=== PATIENT | female | born 1990 | race Caucasian/White ===

== ENCOUNTER 2016-08-28 19:54 | Emergency (ER) | payer BC, OTHER, MEDICAID ==
[~2016-08-28] VITALS: Ht 170.2 cm; Wt 152.8 kg
[~2016-08-28 19:54] MED LIST: ADV250INH INH; AUGM500T34 PO; AZIT500T PO; COMBIN INH; LEVO500T PO; PRED10PA PO; PRED10TA PO; PRED20TA PO; TESS100C PO; [UNRECOGNIZED DRUG - OTHER] IM
[2016-08-28] MEDS ORDERED: AMOX875T (20:08)
[2016-08-28] MEDS ORDERED: IBUP80TA (20:08)
[2016-08-28] MEDS ORDERED: AUGM875T28 PO (21:13)
[2016-08-28] MEDS ORDERED: NORC1TAB4 PO (21:13)
[2016-08-28] MEDS ORDERED: AMPICILLIN SOD/SULBACTAM SOD 3 GM in D5W MINI-BAG PLUS 100 ML IV ONE (21:15)
[2016-08-28] MEDS ORDERED: KETOROLAC 30 MG/ML VIAL (J1885) IV ONE (21:15)
[2016-08-28 22:16] VITALS: BP 137/77
[2016-08-28 22:23] LABS: BASO % 0.3 % (0.0-1.0); EOS # 0.3 K/mm3 (0.0-0.50); EOS % 2.6 % (0.0-3.0); LARGE UNSTAINED CELL # 0.1 K/mm3 (0.0-0.4); LARGE UNSTAINED CELL % 1.1 % (0.0-4.0); LYMPH # 2.3 K/mm3 (1.5-6.5); LYMPH % 17.5 % (24.0-44.0); MEAN CORPUSCULAR HEMOGLOBIN 25.2 pg (27.0-33.0); MEAN CORPUSCULAR HGB CONC 32.8 g/dl (32.0-36.5); MEAN CORPUSCULAR VOLUME 76.7 fl (80.0-96.0); MONO # 0.5 K/mm3 (0.0-0.8); NEUTROPHILS # 9.3 K/mm3 (1.8-7.7); NEUTROPHILS % 74.4 % (36.0-66.0); PLATELET COUNT, AUTOMATED 259 k/mm3 (150-450); RED CELL DISTRIBUTION WIDTH 16.8 % (11.5-14.5); WHITE BLOOD COUNT 12.5 K/mm3 (4.0-10.0)
[2016-08-29] MEDS ORDERED: CLEO300C2 PO (09:26)
== END 2016-08-28 23:26 | disposition home or self-care (01) ==
LOC: M ED 21:35
DX: K04.7 Periapical abscess without sinus (principal); K02.9 Dental caries, unspecified; Z79.51 Long term (current) use of inhaled steroids
CPT/HCPCS: 85025; 87040; 96374; 96375; 99283; J1885

== ENCOUNTER 2016-08-29 06:35 | Emergency (ER) | payer BC, OTHER, MEDICAID ==
[~2016-08-29] VITALS: Ht 170.2 cm; Wt 150.0 kg
[~2016-08-29 06:35] MED LIST changes: +AMOX875T; +AUGM875T28 PO; +IBUP80TA; +NORC1TAB4 PO
[2016-08-29] MEDS ORDERED: CLINDAMYCIN 900 MG in APPROPRIATE DILUENT 1 EA IV ONE (07:00)
[2016-08-29] MEDS ORDERED: KETOROLAC 30 MG/ML VIAL (J1885) IV ONE (07:00)
[2016-08-29 07:35] LABS: BASO # 0.1 K/mm3 (0.0-0.2); BASO % 0.6 % (0.0-1.0); EOS # 0.3 K/mm3 (0.0-0.50); EOS % 2.9 % (0.0-3.0); LARGE UNSTAINED CELL # 0.2 K/mm3 (0.0-0.4); LARGE UNSTAINED CELL % 1.3 % (0.0-4.0); LYMPH # 1.8 K/mm3 (1.5-6.5); LYMPH % 15.6 % (24.0-44.0); MEAN CORPUSCULAR HEMOGLOBIN 25.1 pg (27.0-33.0); MEAN CORPUSCULAR VOLUME 78.5 fl (80.0-96.0); MONO # 0.5 K/mm3 (0.0-0.8); MONO % 4.4 % (0.0-5.0); NEUTROPHILS # 8.8 K/mm3 (1.8-7.7); NEUTROPHILS % 75.2 % (36.0-66.0); PLATELET COUNT, AUTOMATED 261 k/mm3 (150-450); RED CELL DISTRIBUTION WIDTH 16.8 % (11.5-14.5); WHITE BLOOD COUNT 11.7 K/mm3 (4.0-10.0)
[2016-08-29 07:42] LABS: ANION GAP 4 MEQ/L (8-16); BLOOD UREA NITROGEN 12 MG/DL (7-18); CALCIUM LEVEL 8.7 MG/DL (8.5-10.1); CARBON DIOXIDE LEVEL 28 MEQ/L (21-32); CHLORIDE LEVEL 105 MEQ/L (98-107); CREATININE FOR GFR 0.66 MG/DL (0.55-1.02); GLOMERULAR FILTRATION RATE > 60.0 (>60); GLUCOSE, FASTING 106 MG/DL (70-105); POTASSIUM SERUM 3.7 MEQ/L (3.5-5.1); SODIUM LEVEL 137 MEQ/L (136-145)
[2016-08-29] MEDS ORDERED: ISOVUE-370 76% 100ML VIAL (Q9967) As Ordered ONE (08:05)
[2016-08-29 09:01] LABS: ERYTHROCYTE SEDIMENTATION RATE 24 mm/hr (0-20)
--- NOTE | 2016-08-29 09:21 | REP ---
CT SOFT TISSUES NECK: CT soft tissues of the neck performed following the intravenous administration of 75 mL of Isovue 370. Sagittal and coronal reconstruction images are performed. There is edema and presumably cellulitis of the soft tissues along the left mandible with heterogeneous phlegmonous change. No discrete abscess is seen. No other fluid collections are seen in the soft tissues of the neck. Mildly prominent left jugular lymph nodes are present up to 1.5 cm in short axis dimension. No mass is seen of the parotid or submandibular glands. The thyroid appears unremarkable and normal in size. No osseous abnormalities are seen. The visualized paranasal sinuses are clear as are the mastoid air cells. Airway is patent and symmetrical in appearance with no abnormality. IMPRESSION: Cellulitis and phlegmonous change along the left mandible without a discrete abscess identified. Signed by Lino Davis MD 08/30/2016 05:06 P
[2016-08-29 09:23] VITALS: BP 130/65
[2016-08-29] MEDS ORDERED: CLEO300C2 PO (09:26)
== END 2016-08-29 09:37 | disposition home or self-care (01) ==
LOC: M ED 07:53
DX: K04.7 Periapical abscess without sinus (principal); L03.211 Cellulitis of face; J45.909 Unspecified asthma, uncomplicated; F41.9 Anxiety disorder, unspecified; F32.9 Major depressive disorder, single episode, unspecified
CPT/HCPCS: 70491; 80048; 85025; 85652; 86140; 96374; 96375; 99283; J1885; Q9967

== ENCOUNTER 2016-08-29 16:30 | Emergency (ER) | payer BC, OTHER, MEDICAID ==
[~2016-08-29] VITALS: Ht 170.2 cm; Wt 152.3 kg
[~2016-08-29 16:30] MED LIST changes: +CLEO300C2 PO
[2016-08-29] MEDS ORDERED: BUPIVACAINE HCL 0.5% 10 ML VIAL SC ONE (17:45)
[2016-08-29] MEDS ORDERED: BUPIVACAINE HCL 0.5% 10 ML VIAL As Ordered ONE (17:46)
[2016-08-29] MEDS ORDERED: MORPHINE 4 MG/ML 1ML SYRINGE IV ONE (18:00)
[2016-08-29] MEDS ORDERED: CETACAINE SPRAY 20GM (FLOOR STOCK) TOP ONE (19:15)
[2016-08-29 19:40] VITALS: BP 147/69
== END 2016-08-29 19:41 | disposition home or self-care (01) ==
LOC: M ED 17:37
DX: K04.7 Periapical abscess without sinus (principal); L03.211 Cellulitis of face; R68.84 Jaw pain; G50.1 Atypical facial pain; J45.909 Unspecified asthma, uncomplicated; E66.9 Obesity, unspecified; Z79.51 Long term (current) use of inhaled steroids

== ENCOUNTER 2017-12-29 21:48 | Emergency (ER) | payer OTHER, BC, MEDICAID ==
[2017-12-29] MEDS ORDERED: IBUPROFEN 600 MG TAB PO (22:15)
== END 2017-12-29 22:51 | disposition home or self-care (01) ==
LOC: M ED 21:48
DX: S92.532A Displaced fracture of distal phalanx of left lesser toe(s), initial encounter for closed fracture (principal); W22.8XXA Striking against or struck by other objects, initial encounter; Y92.018 Other place in single-family (private) house as the place of occurrence of the external cause; J45.909 Unspecified asthma, uncomplicated; E07.9 Disorder of thyroid, unspecified
CPT/HCPCS: 73660

== ENCOUNTER 2018-03-07 19:55 | Emergency (ER) | payer OTHER ==
[~2018-03-07] VITALS: Ht 170.2 cm; Wt 145.4 kg
[2018-03-07] MEDS ORDERED: TRAM50TA2 PO (21:17)
[2018-03-07 21:28] VITALS: BP 140/68
[2018-03-07] MEDS ORDERED: traMADol 50 MG TAB PO ONE (21:30)
== END 2018-03-07 22:01 | disposition home or self-care (01) ==
LOC: M ED 19:55
DX: S02.5XXA Fracture of tooth (traumatic), initial encounter for closed fracture (principal); X58.XXXA Exposure to other specified factors, initial encounter; Y92.89 Other specified places as the place of occurrence of the external cause; F17.210 Nicotine dependence, cigarettes, uncomplicated

== ENCOUNTER 2018-07-24 15:25 | Emergency (ER) | payer BC, OTHER ==
[~2018-07-24] VITALS: Ht 170.2 cm; Wt 146.6 kg
[~2018-07-24 15:25] MED LIST changes: -NORC1TAB4 PO; +NORC1TAB7 PO; +PRED-351 PO; -PRED10TA PO; +TRAM50TA2 PO
[2018-07-24 15:26] VITALS: BP 160/80
--- NOTE | 2018-07-24 16:45 | REP ---
LEFT HAND, FOUR VIEWS: HISTORY: Trauma. There is no acute fracture or dislocation. The joint spaces are normal in appearance. IMPRESSION: There is no acute fracture or dislocation. Electronically Signed by Osorio Coronado MD 07/24/2018 04:45 P
== END 2018-07-24 16:40 | disposition home or self-care (01) ==
LOC: M ED 15:25
DX: S63.502A Unspecified sprain of left wrist, initial encounter (principal); W01.0XXA Fall on same level from slipping, tripping and stumbling without subsequent striking against object, initial encounter; Y92.018 Other place in single-family (private) house as the place of occurrence of the external cause; F17.210 Nicotine dependence, cigarettes, uncomplicated

== ENCOUNTER 2019-02-09 19:26 | Emergency (ER) | payer BC ==
[~2019-02-09] VITALS: Ht 170.2 cm; Wt 150.0 kg
--- NOTE | 2019-02-09 20:01 | REP ---
Four views left knee: 02/09/2019. Indication: Left knee pain. Comparison: None. Findings: There is no acute fracture, subluxation or dislocation. No significant arthritic process is present. There is no joint effusion. No erosive lesions of the visualized bones are present. Impression: No acute osseous injury of the left knee. Electronically Signed by Edwar Branch DO 02/09/2019 07:52 P
[2019-02-09 20:03] LABS: HEMATOCRIT 40.2 % (36.0-47.0); HEMOGLOBIN 12.3 g/dl (12.0-15.5); MEAN CORPUSCULAR HEMOGLOBIN 24.3 pg (27.0-33.0); MEAN CORPUSCULAR HGB CONC 30.6 g/dl (32.0-36.5); MEAN CORPUSCULAR VOLUME 79.4 fl (80.0-96.0); PLATELET COUNT, AUTOMATED 299 10^3/uL (150-450); RED BLOOD COUNT 5.06 10^6/uL (4.00-5.40); WHITE BLOOD COUNT 14.6 10^3/uL (4.0-10.0)
[2019-02-09 20:22] LABS: ERYTHROCYTE SEDIMENTATION RATE 13 mm/hr (0-20)
[2019-02-09 20:26] LABS: ALBUMIN 3.7 GM/DL (3.2-5.2); ALT/SGPT 37 U/L (12-78); BILIRUBIN,TOTAL 0.2 MG/DL (0.2-1.0); BLOOD UREA NITROGEN 11 MG/DL (7-18); CALCIUM LEVEL 9.3 MG/DL (8.5-10.1); CARBON DIOXIDE LEVEL 28 MEQ/L (21-32); CHLORIDE LEVEL 105 MEQ/L (98-107); CREATININE FOR GFR 0.86 MG/DL (0.55-1.30); GLOMERULAR FILTRATION RATE > 60.0 (>60); GLUCOSE, FASTING 96 MG/DL (70-100); POTASSIUM SERUM 4.2 MEQ/L (3.5-5.1); SODIUM LEVEL 141 MEQ/L (136-145); TOTAL PROTEIN 7.4 GM/DL (6.4-8.2); URIC ACID 4.7 MG/DL (2.6-6.0)
[2019-02-09] MEDS ORDERED: ACETAMINOPHEN 325 MG TAB PO ONE (23:00)
[2019-02-09] MEDS ORDERED: KETOROLAC 60 MG/2 ML VIAL (J1885) IM ONE (23:00)
[2019-02-09] MEDS ORDERED: KETO10TAB PO (23:40)
[2019-02-09 23:47] VITALS: BP 138/84
== END 2019-02-09 23:48 | disposition home or self-care (01) ==
LOC: M ED 19:26
DX: S80.02XA Contusion of left knee, initial encounter (principal); X58.XXXA Exposure to other specified factors, initial encounter; Y92.89 Other specified places as the place of occurrence of the external cause; J45.909 Unspecified asthma, uncomplicated; F17.200 Nicotine dependence, unspecified, uncomplicated
CPT/HCPCS: 36415; 73564; 80053; 83605; 84550; 85027; 85652; 86140; 96372; 99283; J1885

== ENCOUNTER → 2019-08-21 | Outpatient (CLI) | payer BC ==
[~2019-08-21] MED LIST changes: +KETO10TAB PO
[2019-08-21 10:24] LABS: BASO # 0.1 10^3/uL (0.0-0.2); BASO % 0.6 % (0.0-1.0); EOS # 0.5 10^3/uL (0.0-0.5); HEMATOCRIT 37.1 % (36.0-47.0); HEMOGLOBIN 11.7 g/dl (12.0-15.5); LYMPH # 2.4 10^3/uL (1.5-5.0); MEAN CORPUSCULAR HEMOGLOBIN 23.9 pg (27.0-33.0); MEAN CORPUSCULAR HGB CONC 31.5 g/dl (32.0-36.5); MEAN CORPUSCULAR VOLUME 75.7 fl (80.0-96.0); MONO # 0.7 10^3/uL (0.0-0.8); MONO % 6.8 % (0.0-5.0); NEUTROPHILS # 5.9 10^3/uL (1.5-8.5); NEUTROPHILS % 62.2 % (36.0-66.0); PLATELET COUNT, AUTOMATED 258 10^3/uL (150-450); WHITE BLOOD COUNT 9.5 10^3/uL (4.0-10.0)
[2019-08-21 10:54] LABS: CHOLESTEROL LEVEL 134 MG/DL (<200); FREE T3 2.8 PG/ML (2.2-4.0); FREE T4 0.95 NG/DL (0.76-1.46); HDL CHOLESTEROL 33 MG/DL (>40); LDL CHOLESTEROL 72 MG/DL (<100); NON-HDL-C 101 MG/DL; THYROID PEROXIDASE ANTIBODY > 1300.0 U/ML (<60.0); THYROXINE (T4) 7.5 UG/DL (4.5-12.0); TOTAL 25(OH) VITAMIN D 15.3 NG/ML (30.0-100.0); TRIGLYCERIDES LEVEL 145 MG/DL (<150)
[2019-08-21 11:15] LABS: HEMOGLOBIN A1c 5.5 %
== END ==
LOC: M WUC 08:36
PROVIDERS: ATTEND Nurse Practitioner Adult Health
DX: Z51.81 Encounter for therapeutic drug level monitoring (principal); Z79.899 Other long term (current) drug therapy; G47.33 Obstructive sleep apnea (adult) (pediatric); E03.9 Hypothyroidism, unspecified

== ENCOUNTER 2020-04-11 15:10 | Emergency (ER) | payer BC ==
[~2020-04-11] VITALS: Ht 170.2 cm; Wt 136.8 kg
--- OUTSIDE RECORDS SUMMARY | 2020-04-11 15:15 | CCD ---
Author Author [facility] Organization [facility] Address Unknown Phone Unavailable Care Team Providers Care Electronic Engraver Name Role Phone Lizett Strange ANP-BC Unavailable Unavailable Lizett Strangen ANP-BC Unavailable Unavailable Lizett Strangen ANP-BC Unavailable Unavailable Lizett Strangen ANP-BC Unavailable Unavailable AlexandrLizett Makayla ANP-BC Unavailable Unavailable AlexandrLizett Makayla ANP-BC Unavailable Unavailable AlexandrLizett Makayla ANP-BC Unavailable Unavailable Lizett Strange Makayla ANP-BC Unavailable Unavailable Lizett Strange Makayla ANP-BC Unavailable Unavailable AlexandrLizett Makayla ANP-BC Unavailable Unavailable AlexandrLizett Makayla ANP-BC Unavailable Unavailable AlexandrLizett Makayla ANP-BC Unavailable Unavailable AlexandrLizett Makayla ANP-BC Unavailable Unavailable AlexandrLizett Makayla ANP-BC Unavailable Unavailable AlexandrLizett Makayla ANP-BC Unavailable Unavailable AlexandrLizett Makayla ANP-BC Unavailable Unavailable AlexandrLizett Makayla ANP-BC Unavailable Unavailable AlexandrLizett Makayla ANP-BC Unavailable Unavailable AlexandrLizett Makayla ANP-BC Unavailable Unavailable AlexandrLizett Makayla ANP-BC Unavailable Unavailable AlexandrLizett Makayla ANP-BC Unavailable Unavailable Alexandr, Lizett Makayla ANP-BC Unavailable Unavailable Alexandr, Lizett Makayla ANP-BC Unavailable Unavailable Alexandr, Lizett Makayla ANP-BC Unavailable Unavailable Alexandr, Lizett Makayla ANP-BC Unavailable Unavailable Alexandr, Lizett Makayla ANP-BC Unavailable Unavailable Alexandr, Lizett Makayla ANP-BC Unavailable Unavailable Alexandr, Lizett Makayla ANP-BC Unavailable Unavailable Alexandr, Lizett Makayla ANP-BC Unavailable Unavailable Alexandr, Lizett Makayla ANP-BC Unavailable Unavailable Alexandr, Lizett Makayla ANP-BC Unavailable Unavailable Alexandr, Lizett Makayla ANP-BC Unavailable Unavailable Alexandr, Lizett Makayla ANP-BC Unavailable Unavailable Alexandr, Lizett Makayla ANP-BC Unavailable Unavailable Alexandr, Lizett Makayla ANP-BC Unavailable Unavailable Alexandr, Lizett Makayla ANP-BC Unavailable Unavailable Alexandr, Lizett Makayla ANP-BC Unavailable Unavailable Alexandr, Lizett Makayla ANP-BC Unavailable Unavailable Alexandr, Lizett Makayla ANP-BC Unavailable Unavailable Alexandr, Lizett Makayla ANP-BC Unavailable Unavailable Alexandr, Lizett Makayla ANP-BC Unavailable Unavailable Alexandr, Lizett Makayla ANP-BC Unavailable Unavailable Alexandr, Lizett Makayla ANP-BC Unavailable Unavailable Alexandr, Lizett Makayla ANP-BC Unavailable Unavailable Alexandr, Lizett Makayla ANP-BC Unavailable Unavailable Alexandr, Lizett Makayla ANP-BC Unavailable Unavailable Alexandr, Lizett Makayla ANP-BC Unavailable Unavailable Alexandr, Lizett Makayla ANP-BC Unavailable Unavailable Alexandr, Lizett Makayla ANP-BC Unavailable Unavailable Alexandr, Lizett Makayla ANP-BC Unavailable Unavailable Alexandr, Lizett Makayla ANP-BC Unavailable Unavailable Alexandr, Lizett Makayla ANP-BC Unavailable Unavailable Alexandr, Lizett Makayla ANP-BC Unavailable Unavailable Alexandr, Lizett Makayla ANP-BC Unavailable Unavailable Alexandr, Lizett Makayla ANP-BC Unavailable Unavailable Alexandr, Lizett Makayla ANP-BC Unavailable Unavailable Alexandr, Lizett Makayla ANP-BC Unavailable Unavailable Alexandr, Lizett Makayla ANP-BC Unavailable Unavailable Alexandr, Lizett Makayla ANP-BC Unavailable Unavailable Alexandr, Lizett Makayla ANP-BC Unavailable Unavailable Alexandr, Lizett Makayla ANP-BC Unavailable Unavailable Alexandr, Lizett Makayla ANP-BC Unavailable Unavailable Alexandr, Lizett Makayla ANP-BC Unavailable Unavailable Alexandr, Lizett Makayla ANP-BC Unavailable Unavailable Alexandr, Lizett Makayla ANP-BC Unavailable Unavailable Alexandr, Lizett Makayla ANP-BC Unavailable Unavailable Alexandr, Lizett Makayla ANP-BC Unavailable Unavailable Alexandr, Lizett Makayla ANP-BC Unavailable Unavailable Alexandr, Lizett Makayla ANP-BC Unavailable Unavailable Alexandr, Lizett Makayla ANP-BC Unavailable Unavailable Alexandr, Lizett Makayla ANP-BC Unavailable Unavailable Alexandr, Lizett Makayla ANP-BC Unavailable Unavailable Alexandr, Lizett Makayla ANP-BC Unavailable Unavailable Alexandr, Lizett Makayla ANP-BC Unavailable Unavailable Alexandr, Lizett Makayla ANP-BC Unavailable Unavailable Alexandr, Lizett Makayla ANP-BC Unavailable Unavailable Alexandr, Lizett Makayla ANP-BC Unavailable Unavailable Alexandr, Lizett Makayla ANP-BC Unavailable Unavailable Alexandr, Lizett Makayla ANP-BC Unavailable Unavailable Alexandr, Lizett Makayla ANP-BC Unavailable Unavailable Alexandr, Lizett Makayla ANP-BC Unavailable Unavailable Alexandr, Lizett Makayla ANP-BC Unavailable Unavailable Alexandr, Lizett Makayla ANP-BC Unavailable Unavailable Alexandr, Lizett Makayla ANP-BC Unavailable Unavailable Alexandr, Lizett Makayla ANP-BC Unavailable Unavailable Alexandr, Lizett Makayla ANP-BC Unavailable Unavailable Alexandr, Lizett Makayla ANP-BC Unavailable Unavailable Alexandr, Lizett Makayla ANP-BC Unavailable Unavailable Alexandr, Lizett Makayla ANP-BC Unavailable Unavailable Alexandr, Lizett Makayla ANP-BC Unavailable Unavailable Alexandr, Lizett Makayla ANP-BC Unavailable Unavailable Alexandr, Lizett Makayla ANP-BC Unavailable Unavailable Alexandr, Lizett Makayla ANP-BC Unavailable Unavailable Alexandr, Lizett Makayla ANP-BC Unavailable Unavailable Alexandr, Lizett Makayla ANP-BC Unavailable Unavailable Alexandr, Lizett Makayla ANP-BC Unavailable Unavailable Alexandr, Lizett Makayla ANP-BC Unavailable Unavailable Alexandr, Lizett Makayla ANP-BC Unavailable Unavailable Alexandr, Lizett Makayla ANP-BC Unavailable Unavailable Alexandr, Lizett Makayla ANP-BC Unavailable Unavailable Alexandr, Lizett Makayla ANP-BC Unavailable Unavailable Alexandr, Lizett Makayla ANP-BC Unavailable Unavailable Alexandr, Lizett Makayla ANP-BC Unavailable Unavailable Alexandr, Lizett Makayla ANP-BC Unavailable Unavailable Alexandr, Lizett Makayla ANP-BC Unavailable Unavailable Alexandr, Lizett Makayla ANP-BC Unavailable Unavailable Alexandr, Lizett Makayla ANP-BC Unavailable Unavailable Alexandr, Lizett Makayla ANP-BC Unavailable Unavailable Alexandr, Lizett Makayla ANP-BC Unavailable Unavailable Alexandr, Lizett Makayla ANP-BC Unavailable Unavailable Alexandr, Lizett Makayla ANP-BC Unavailable Unavailable Alexandr, Lizett Makayla ANP-BC Unavailable Unavailable Alexandr, Lizett Makayla ANP-BC Unavailable Unavailable Alexandr, Lizett Makayla ANP-BC Unavailable Unavailable Alexandr, Lizett Makayla ANP-BC Unavailable Unavailable Alexandr, Lizett Makayla ANP-BC Unavailable Unavailable Alexandr, Lizett Makayla ANP-BC Unavailable Unavailable Alexandr, Lizett Makayla ANP-BC Unavailable Unavailable Alexandr, Lizett Makayla ANP-BC Unavailable Unavailable Laexandr, Lizett Makayla ANP-BC Unavailable Unavailable Alexandr, Lizett Makayla ANP-BC Unavailable Unavailable Alexandr, Lizett Makayla ANP-BC Unavailable Unavailable Alexandr, Lizett Makayla ANP-BC Unavailable Unavailable Alexandr, Lizett Makayla ANP-BC Unavailable Unavailable Alexandr, Lizett Makayla ANP-BC Unavailable Unavailable Alexandr, Lizett Makayla ANP-BC Unavailable Unavailable Alexandr, Lizett Makayla ANP-BC Unavailable Unavailable Alexandr, Lizett Makayla ANP-BC Unavailable Unavailable Re-disclosure Warning The records that you are about to access may contain information from federally-assisted alcohol or drug abuse programs. If such information is present, then the following federally mandated warning applies: This information has been disclosed to you from records protected by federal confidentiality rules (42 CFR part 2). The federal rules prohibit you from making any further disclosure of this information unless further disclosure is expressly permitted by the written consent of the person to whom it pertains or as otherwise permitted by 42 CFR part 2. A general authorization for the release of medical or other information is NOT sufficient for this purpose. The Federal rules restrict any use of the information to criminally investigate or prosecute any alcohol or drug abuse patient.The records that you are about to access may contain highly sensitive health information, the redisclosure of which is protected by Article 27-F of the [facility] Public Health law. If you continue you may have access to information: Regarding HIV / AIDS; Provided by facilities licensed or operated by the [facility] Office of Mental Health; or Provided by the [facility] Office for People With Developmental Disabilities. If such information is present, then the following [facility] mandated warning applies: This information has been disclosed to you from confidential records which are protected by state law. State law prohibits you from making any further disclosure of this information without the specific written consent of the person to whom it pertains, or as otherwise permitted by law. Any unauthorized further disclosure in violation of state law may result in a fine or fdc sentence or both. A general authorization for the release of medical or other information is NOT sufficient authorization for further disc losure. Family History Family Member Name Family Member Gender Family Member Status Date o f Status Description Data Source(s) Unknown Male Problem [facility] ([facility]) Encounters Encounter Providers Location Date Indications Data Source(s ) Outpatient Attender: Makayla IVERSONonsultant: Makayla WILLIAMSON 08/21/2019 12:59:00 PM EDT - 08/21/2019 12:59:00 PM EDT [facility] Outpatient Attender: Makayla WILLIAMSON Family [facility] 07/09 10:40:00 AM EDT [facility] Outpatient Attender: Makayla IVERSONonsultant: Makayla WILLIAMSON 07/27/2019 10:35:00 AM EDT - 07/27/2019 10:35:00 AM EDT [facility] Outpatient 02/17/2019 09:45:[address] [facility] Radiology Imaging Medications Medication Brand Name Start Date Product Form Dose Route Admi nistrative Instructions Pharmacy Instructions Status Indications Reaction Description Data Source(s) Ergocalciferol 85064 UNT Oral Capsule Vitamin D (Ergocalcife rol) 08/23/2019 12:00:00 AM EDT active M EDENT ([facility]) Norethindrone 0.35 MG Oral Tablet Norethindrone 08/21/2019 12:00:00 A M EDT active [facility] ([facility]) Ergocalciferol 22095 UNT Oral Capsule [Drisdol] Drisdol 08/21/2019 12:00:00 AM EDT ORAL completed [facility] ([facility]) Levothyroxine Sodium 0.05 MG Oral Tablet Levothyroxine Sodiu m 08/21/2019 12:00:00 AM EDT active M [facility]ENT ([facility]) Hydroxyzine Hydrochloride 25 MG Oral Tablet Hydroxyzine HCL 07/27/2019 12:00:00 AM EDT ORAL active [facility] ([facility]) Naproxen 375 MG Oral Tablet Naproxen 07/27/2019 12:00:00 AM EDT ORAL active [facility] ([facility]) No Active Medications 07/27/2019 12:00:00 AM EDT completed [facility] ([facility]) 200 ACTUAT Albuterol 0.09 MG/ACTUAT Metered Dose Inhal er [Ventolin] Ventolin HFA 07/27/2019 12:00:00 AM EDT RESPIRATORY active [facility] ([facility]) Insurance Providers Payer name Policy type / Coverage type Policy ID Covered republican ID Covered republican's relationship to boucher Policy Boucher Plan Information [employer] P[place] 302/307 [id number] SP [id number] [facility]LLUS [facility] BS [id number] 18 [id number] EXCELLUS BCBS B [id number] S [id number] [place] [place] PPO 302/307 [id number] SP [id number] [employer] [id number] SP [id number] MVP (pr) Commercial [id number] Self [id number] MVP (pr) Commercial [id number] Self [id number] [employer] [id number] SP [id number] MEDICAID [id number] SP [id number] [facility] [id number] [id number] BCBS EMPIRE YUNIER DIV [id number] FA2 [id number] MEDICAID M [id number] [facility] O [id number] S [id number] MEDICAID [id number] 18 [id number] [facility] [id number] [place]ID [place] [id number] MEDICAID -O/P [id number] 18 [id number] [facility] -O/P [id number] UNHC AMERICHOICE XIX -HMO [id number] 18 [id number] MEDICAID -O/P EMERGENCY ROOM [id number] 18 [id number] [facility] P [id number] S [id number] [facility] [id number] [id number] BCBS [facility] DIV [id number] [id number] Problems, Conditions, and Diagnoses Code Display Name Description Problem Type Effective Dates Data Source(s) L78372 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 O ther press tender long goods (current) drug therapy Diagnosis 07/27/2019 10:35:00 AM EDT [facility] [id number] Migraine, unspecified, not intractable, without status migrainosus Migraine, unspecified, not intractable, without status migrainosus Diagnosis 07/27/2019 10:35:00 AM EDT [facility] F411 Generalized anxiety disorder Generalized anxiety disor opal Diagnosis 07/27/2019 10:35:00 AM EDT [facility] R78271 Other asthma Other asthma Diagnosis 07/27/2019 10:35:00 A M EDT [facility] G4733 Obstructive sleep apnea (adult) (pediatr ic) Obstructive sleep apnea (adult) (pediatric) Diagnosis 07/27/2019 10:35:00 AM EDT [facility] E039 Hypothyroidism, unspecified Hypothyroidism, unspecifie d Diagnosis 07/27/2019 10:35:00 AM EDT [facility] Surgeries/Procedures Procedure Description Date Indications Data Source(s) Brief Emotional/Behav Assessment W/ Scoring Doc Per Standard Inst 07/27/2019 12:00:00 AM EDT [facility] ([facility]) Admin Patient Focused Health Risk Assessment Instrument 07/27/2019 12:00:00 AM EDT [facility] ([facility]) Results ID Date Data Source [id number] 09/26/2019 12:00:00 AM EDT [facility] Name Value Range Interpretation Code Description Data Donna rce(s) Supporting Document(s) SARS coronavirus 2 RNA [Presence] in Res piratory specimen by AGATA with probe detection [facility] This lab was ordered by Abdulkadir Gan and reported by [facility] [employer]. ID Date Data Source [id number] 08/21/2019 08:40:00 AM EDT [facility] ([facility]) Name Value Range Interpretation Code Description Data Donna rce(s) Supporting Document(s) Estimated Average Glucose 111 mg/dL 60-110 Above high normal [facility] ([facility]) Hemoglobin A1c 5.5 % Normal (applies to non-numeric r esults) [facility] ([facility]) REFERENCE RANGES: 4.5-5.6% NORMAL 5.7-6.4% SUGGESTS IMPAIRED GLUCOSE META BOLISM >= 6.5% ABNORMAL ID Date Data Source [id number] 08/21/2019 08:40:00 AM EDT [facility] Name Value Range Interpretation Code Description Data Donna rce(s) Supporting Document(s) Thyroxine (T4) [Mass/volume] in Serum or Plasma 7.5 ug/dL 4.5-12.0 Normal (applies to non-numeric results) [facility] ([facility]) Triiodothyronine (T3) Free [Mass/volume] in Serum or Plasma 2.8 pg/mL 2.2-4.0 Normal (applies to non-numeric results) [facility] ([facility]) Thyroxine (T4) free [Mass/volume] in Serum or Plasma 0.95 ng/dL 0.76-1.46 Normal (applies to non-numeric results) [facility] ([facility]) Thyrotropin [Units/volume] in Serum or Plasma 4.230 uIU/ML 0. 358-3.740 Above high normal [facility] ([facility]) Thyroperoxidase Ab [Units/volume] in Serum or Plasma Laboratory test result Above high normal [facility] ([facility]) Calcidiol [Mass/volume] in Serum or Plasma 15.3 ng/mL 30.0- 100.0 Below low normal [facility] ([facility]) ID Date Data Source [id number] 08/21/2019 08:40:00 AM EDT [facility] ([facility]) Name Value Range Interpretation Code Description Data Donna rce(s) Supporting Document(s) Cholesterol Level 134 mg/dL Normal (applies to non-numeri c results) [facility] HDL Cholesterol 33 mg/dL Below low normal [facility] ([facility]) Triglycerides Level 145 mg/dL Normal (applies to non-nume maricel results) [facility] Cholesterol Risk Ratio 4.060 Normal (applies to non-n umeric results) [facility]) LDL Cholesterol 72 mg/dL Normal (applies to non-numeric results) [facility] Non-HDL-C 101 mg/dL Normal (applies to non-numeric resul ts) [facility] Procedure Vital Signs ID Date Data Source UNK Name Value Range Interpretation Code Description Data Source(s) Body surface area Derived from formula 2.38 m2 2.38 m2 [facility] ([facility]) Body mass index (BMI) [Ratio] 48.7 kg/m2 48.7 k g/m2 [facility] ([facility]) Body height 66 [in_i] 66 [in_i] [facility] ([facility]) 5'6" Body weight 136.760 kg 136.760 kg [facility] ([facility]) Body weight 301.50 [lb_av] 301.50 [lb_av] [facility] ([facility]) Oxygen saturation in Arterial blood by Pulse oximetry 98 % 98 % [facility] ([facility]) Respiratory rate 18 /min 18 /min [facility] ( [facility]) Body temperature 98.1 [degF] 98.1 [degF] [facility] ([facility]) Heart rate 90 /min 90 /min [facility] ([facility]) Diastolic blood pressure 78 mm[Hg] 78 mm[Hg] [facility] ([facility]) Systolic blood pressure 128 mm[Hg] 128 mm[Hg] [facility] Body surface area 2.38 m2 2.38 m2 [facility] ([facility]) Body surface area Derived from formula 2.39 m2 2.39 m2 [facility] ([facility]) Body mass index (BMI) [Ratio] 49.3 kg/m2 49.3 k g/m2 [facility] ([facility]) Body height 66 [in_i] 66 [in_i] [facility] ([facility]) 5'6" Body weight 138.461 kg 138.461 kg [facility] ([facility]) Body weight 305.25 [lb_av] 305.25 [lb_av] [facility] T ([facility]) Oxygen saturation in Arterial blood by Pulse oximetry 96 % 96 % [facility] ([facility]) Respiratory rate 18 /min 18 /min [facility] ( [facility]) Body temperature 98.1 [degF] 98.1 [degF] [facility] ([facility]) Heart rate 94 /min 94 /min [facility] ([facility]) Diastolic blood pressure 80 mm[Hg] 80 mm[Hg] [facility] ([facility]) Systolic blood pressure 136 mm[Hg] 136 mm[Hg] [facility] Body surface area 2.39 m2 2.39 m2 [facility] ([facility])
--- NOTE | 2020-04-11 16:58 | REP ---
INDICATION: fall down stairs. COMPARISON: None. TECHNIQUE: Five views left ribs and PA view of chest. FINDINGS: There is no evidence of left rib fracture or bone lesion. Both lungs are clear. There is no pneumothorax or pleural effusion. The heart mediastinum are within normal limits. IMPRESSION: Negative left rib series, no evidence of left rib fracture. <Electronically signed by Lino Davis > 04/11/20 [id number]
[2020-04-11] MEDS ORDERED: CYCLOBENZAPRINE 5MG TABLET PO ONE (18:00)
[2020-04-11] MEDS ORDERED: KETOROLAC 60MG 2ML VIAL IM ONE (18:00)
--- OUTSIDE RECORDS SUMMARY | 2020-04-11 18:19 | CCD ---
Author Author [facility] Organization [facility] Address Unknown Phone Unavailable Care Team Providers Care Spa Concierge Name Role Phone Lizett Strange ANP-BC Unavailable Unavailable Lizett Strangen ANP-BC Unavailable Unavailable Lizett Strangen ANP-BC Unavailable Unavailable Lizett Strangen ANP-BC Unavailable Unavailable Lizett Strange Makayla ANP-BC Unavailable Unavailable AlexandrLizett Makayla ANP-BC Unavailable Unavailable Lizett Strange Makayla ANP-BC Unavailable Unavailable Lizett Strangen ANP-BC Unavailable Unavailable Lizett Strange Makayla ANP-BC [...] Lizett Makayla ANP-BC Unavailable Unavailable Alexandr, Lizett Makyala ANP-BC Unavailable Unavailable Alexandr, Lizett Makayla ANP-BC [...] is protected by Article 27-F of the [facility] Public Health law. If you continue you may have access to information: Regarding HIV / AIDS; Provided by facilities licensed or operated by the [facility] Office of Mental Health; or Provided by the [facility] Office for People With Developmental Disabilities. If such information is present, then the following [facility] mandated warning applies: This information has [...] law may result in a fine or [place] health [place] sentence or both. A general authorization for the release of medical or other information is NOT sufficient authorization for further disc losure. Family History Family Member Name Family Member Gender Family Member Status Date o f Status Description Data Source(s) Unknown Male Problem [facility] ([facility]) Encounters Encounter Providers Location Date Indications Data Source(s ) Outpatient Attender: Makayla IVERSONonsultant: Makayla WILLIAMSON 08/21/2019 12:59:00 PM EDT - 08/21/2019 12:59:00 PM EDT [facility] Outpatient Attender: Makayla WILLIAMSON [facility] 07/09 10:40:00 AM EDT [facility] ([facility] Outpatient Attender: Makayla IVERSONonsultant: Makayla WILLIAMSON 07/27/2019 10:35:00 AM EDT - 07/27/2019 10:35:00 AM EDT [facility] Outpatient 02/17/2019 09:45:00 PM EST [facility] Radiology Imaging Medications Medication Brand Name Start Date Product Form Dose Route Admi nistrative Instructions Pharmacy Instructions Status Indications Reaction Description Data Source(s) Ergocalciferol 09040 UNT Oral Capsule Vitamin D (Ergocalcife rol) 08/23/2019 12:00:00 AM EDT active M EDENT ([facility]) Norethindrone 0.35 MG Oral Tablet Norethindrone 08/21/2019 12:00:00 A M EDT active MEDENT ([facility]) Ergocalciferol 01913 UNT Oral Capsule [Drisdol] Drisdol 08/21/2019 12:00:00 AM EDT ORAL completed MEDENT ([facility]) Levothyroxine Sodium 0.05 MG Oral Tablet Levothyroxine Sodiu m 08/21/2019 12:00:00 AM EDT active M EDENT ([facility]) Hydroxyzine Hydrochloride 25 MG Oral Tablet Hydroxyzine HCL 07/27/2019 12:00:00 AM EDT ORAL active MED[facility] ([facility]) Naproxen 375 MG Oral Tablet Naproxen 07/27/2019 12:00:00 AM EDT ORAL active [facility] ([facility]) No Active Medications 07/27/2019 12:00:00 AM EDT completed MEDENT ([facility]) 200 ACTUAT Albuterol 0.09 MG/ACTUAT Metered Dose Inhal er [Ventolin] Ventolin HFA 07/27/2019 12:00:00 AM EDT RESPIRATORY active MEDENT ([facility]) Insurance Providers Payer name Policy type / Coverage type Policy ID Covered democrat ID Covered democrat's relationship to boucher Policy Boucher Plan Information [place] P[place] 302/307 [id number] SP [id number] [facility] BS [id number] 18 [id number] EXCELLUS BCBS B [id number] S [id number] [place]BS [place] PPO 302/307 [id number] SP [id number] [facility] [id number] SP [id number] MVP (pr) Commercial [id number] Self [id number] MVP (pr) Commercial [id number] Self [id number] [employer] [facility] [id number] SP [id number] MEDICAID [id number] SP [id number] [facility] [id number] FA2 [id number] BCBS EMPIRE [place] DIV [id number] FA2 [id number] MEDICAID M [id number] S [id number] [facility] O [id number] S [id number] MEDICAID [id number] 18 [id number] [facility] [id number] 18 [id number] MEDICAID [place] [id number] 18 [id number] MEDICAID -O/P [id number] 18 [id number] [facility] -O/P [id number] UNHC AMERICHOICE XIX -HMO [id number] 18 [id number] MEDICAID -O/P EMERGENCY ROOM [id number] 18 [id number] [facility] P [id number] S [id number] [facility] [id number] FA2 [id number] [facility] DIV [id number] FA2 [id number] Problems, Conditions, and Diagnoses Code Display Name Description Problem Type Effective Dates Data Source(s) 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 O ther oil heaterman (current) drug therapy Diagnosis 07/27/2019 10:35:00 AM EDT [facility] T55581 Migraine, unspecified, not intractable, without status migrainosus Migraine, unspecified, not intractable, without status migrainosus Diagnosis 07/27/2019 10:35:00 AM EDT [facility] F411 Generalized anxiety disorder Generalized anxiety disor opal Diagnosis 07/27/2019 10:35:00 AM EDT [facility] T35887 Other asthma Other asthma Diagnosis 07/27/2019 10:35:00 A M EDT [facility] G4733 Obstructive sleep apnea (adult) (pediatr ic) Obstructive sleep apnea (adult) (pediatric) Diagnosis 07/27/2019 10:35:00 AM EDT [facility] E039 Hypothyroidism, unspecified Hypothyroidism, unspecifie d Diagnosis 07/27/2019 10:35:00 AM EDT [facility] Surgeries/Procedures Procedure Description Date Indications Data Source(s) Brief Emotional/Behav Assessment W/ Scoring Doc Per Standard Inst 07/27/2019 12:00:00 AM EDT [facility] ([facility] Admin Patient Focused Health Risk Assessment Instrument 07/27/2019 12:00:00 AM EDT MED[facility] ([facility]) Results ID Date Data Source [id number] 09/26/2019 12:00:00 AM EDT [facility] Name Value Range Interpretation Code Description Data Donna rce(s) Supporting Document(s) SARS coronavirus 2 RNA [Presence] in Res piratory specimen by AGATA with probe detection [facility] This lab was ordered by Abdulkadir Gan and reported by [employer]. ID Date Data Source [id number] 08/21/2019 08:40:00 AM EDT MED[facility] ([facility]) Name Value Range Interpretation Code Description Data Donna rce(s) Supporting Document(s) Estimated Average Glucose 111 mg/dL 60-110 Above high normal MED[facility] ([facility]) Hemoglobin A1c 5.5 % Normal (applies to non-numeric r esults) [facility] ([facility]) REFERENCE RANGES: 4.5-5.6% NORMAL 5.7-6.4% SUGGESTS IMPAIRED GLUCOSE META BOLISM >= 6.5% ABNORMAL ID Date Data Source [id number] 08/21/2019 08:40:00 AM EDT [facility] ([facility]) Name Value Range Interpretation Code Description Data Donna rce(s) Supporting Document(s) Thyroxine (T4) [Mass/volume] in Serum or Plasma 7.5 ug/dL 4.5-12.0 Normal (applies to non-numeric results) [facility] ([facility]) Triiodothyronine (T3) Free [Mass/volume] in Serum or Plasma 2.8 pg/mL 2.2-4.0 Normal (applies to non-numeric results) [facility] ([facility]) Thyroxine (T4) free [Mass/volume] in Serum or Plasma 0.95 ng/dL 0.76-1.46 Normal (applies to non-numeric results) [facility] ([facility]) Thyrotropin [Units/volume] in Serum or Plasma 4.230 uIU/ML 0. 358-3.740 Above high normal MED[facility] ([facility]) Thyroperoxidase Ab [Units/volume] in Serum or Plasma Laboratory test result Above high normal [facility] ([facility]) Calcidiol [Mass/volume] in Serum or Plasma 15.3 ng/mL 30.0- 100.0 Below low normal [facility] ([facility]) ID Date Data Source [id number] 08/21/2019 08:40:00 AM EDT [facility] ([facility]) Name Value Range Interpretation Code Description Data Donna rce(s) Supporting Document(s) Cholesterol Level 134 mg/dL Normal (applies to non-numeri c results) [facility] HDL Cholesterol 33 mg/dL Below low normal [facility] ([facility]) Triglycerides Level 145 mg/dL Normal (applies to non-nume maricel results) [facility] ([facility]) Cholesterol Risk Ratio 4.060 Normal (applies to non-n umeric results) [facility] ([facility]) LDL Cholesterol 72 mg/dL Normal (applies to non-numeric results) [facility] ([facility]) Non-HDL-C 101 mg/dL Normal (applies to non-numeric resul ts) [facility]) Procedure Vital Signs ID Date Data Source [id number] Name Value Range Interpretation Code Description Data Source(s) Body surface area Derived from formula 2.38 m2 2.38 m2 [facility] ([facility]) Body mass index (BMI) [Ratio] 48.7 kg/m2 48.7 k g/m2 [facility] ([facility]) Body height 66 [in_i] 66 [in_i] [facility] ([facility]) 5'6" Body weight 136.760 kg 136.760 kg [facility] ([facility]) Body weight 301.50 [lb_av] 301.50 [lb_av] MEDEN T ([facility]) Oxygen saturation in Arterial blood by Pulse oximetry 98 % 98 % [facility] ([facility]) Respiratory rate 18 /min 18 /min [facility] ( [facility]) Body temperature 98.1 [degF] 98.1 [degF] [facility] ([facility]) Heart rate 90 /min 90 /min [facility] ([facility]) Diastolic blood pressure 78 mm[Hg] 78 mm[Hg] [facility] ([facility]) Systolic blood pressure 128 mm[Hg] 128 mm[Hg] [facility] Body surface area 2.38 m2 2.38 m2 [facility] ([facility]) Body surface area Derived from formula 2.39 m2 2.39 m2 [facility] ([facility]) Body mass index (BMI) [Ratio] 49.3 kg/m2 49.3 k g/m2 [facility] ([facility]) Body height 66 [in_i] 66 [in_i] [facility] ([facility]) 5'6" Body weight 138.461 kg 138.461 kg [facility] ([facility]) Body weight 305.25 [lb_av] 305.25 [lb_av] MEDEN T ([facility]) Oxygen saturation in Arterial blood by Pulse oximetry 96 % 96 % [facility] ([facility]) Respiratory rate 18 /min 18 /min [facility] ( [facility]) Body temperature 98.1 [degF] 98.1 [degF] [facility] ([facility]) Heart rate 94 /min 94 /min [facility] ([facility]) Diastolic blood pressure 80 mm[Hg] 80 mm[Hg] [facility] ([facility]) Systolic blood pressure 136 mm[Hg] 136 mm[facility]Hg] [facility] Body surface area 2.39 m2 2.39 m2 [facility] ([facility])
--- NOTE | 2020-04-11 18:54 | REPVR ---
PROCEDURE INFORMATION: Exam: CT Lumbar Spine Without Contrast Exam date and time: 04/11/2020 5:53 PM Age: 29 years old Clinical indication: Injury or trauma; Fall; Blunt trauma (contusions or hematomas); Additional info: Fall down stairs TECHNIQUE: Imaging protocol: Computed tomography images of the lumbar spine without contrast. Radiation optimization: All CT scans at this facility use at least one of these dose optimization techniques: automated exposure control; mA and/or kV adjustment per patient size (includes targeted exams where dose is matched to clinical indication); or iterative reconstruction. COMPARISON: No relevant prior studies available. FINDINGS: Vertebrae: Mild wedge compression deformity in the anterior superior aspect of T12 associated with sclerosis. Finding may represent an age indeterminate vertebral fracture. Otherwise unremarkable. L1-L2: No significant disc protrusion. No severe spinal canal stenosis. No significant neural foraminal narrowing. L2-L3: No significant disc protrusion. No spinal canal stenosis. No neural foraminal narrowing. L3-L4: No significant disc protrusion. No severe spinal canal stenosis. No significant neural foraminal narrowing. L4-L5: No significant disc protrusion. No severe spinal canal stenosis. No significant neural foraminal narrowing. L5-S1: No significant disc protrusion. No severe spinal canal stenosis. No significant neural foraminal narrowing. Soft tissues: Unremarkable. IMPRESSION: 1. Mild wedge compression deformity in the anterior superior aspect of T12 associated with sclerosis. Finding may represent an age indeterminate vertebral fracture. 2. Findings otherwise unremarkable. Electronically signed by: Marquis Delong On 04/11/2020 18:53:55 PM
[2020-04-11] MEDS ORDERED: CYCL5TAB PO (19:18)
[2020-04-11] MEDS ORDERED: KETO10TAB PO (19:19)
[2020-04-11 19:26] VITALS: BP 139/69
== END 2020-04-11 19:33 | disposition home or self-care (01) ==
LOC: M ED 15:10
DX: S20.222A Contusion of left back wall of thorax, initial encounter (principal); W10.8XXA Fall (on) (from) other stairs and steps, initial encounter; Y92.018 Other place in single-family (private) house as the place of occurrence of the external cause; F17.210 Nicotine dependence, cigarettes, uncomplicated
CPT/HCPCS: 71101; 72131; 96372; 99283; J1885

== ENCOUNTER 2020-11-18 22:12 | Emergency (ER) | payer BC ==
[~2020-11-18] VITALS: Ht 170.2 cm; Wt 143.7 kg
[~2020-11-18 22:12] MED LIST changes: +CYCL5TAB PO
[2020-11-19] MEDS ORDERED: methylPREDNISolone 125MG 2ML VIAL IV ONE (06:35)
[2020-11-19 07:34] LABS: VENOUS BASE EXCESS -2.7 (-2.0-2.0); VENOUS HCO3 21.8 MEQ/L (23.0-27.0); VENOUS O2 SATURATION 87.4 % (60.0-80.0); VENOUS PARTIAL PRESSURE CO2 37.2 mmHg (38.0-50.0); VENOUS PARTIAL PRESSURE O2 52.5 mmHg (30.0-50.0); VENOUS PH 7.386 UNITS (7.330-7.430)
[2020-11-19 07:40] LABS: BASO # 0.1 10^3/uL (0.0-0.2); BASO % 0.7 % (0.0-1.0); EOS % 6.3 % (0.0-3.0); HEMATOCRIT 46.5 % (36.0-47.0); HEMOGLOBIN 15.8 g/dl (12.0-15.5); LYMPH # 2.4 10^3/uL (1.5-5.0); MEAN CORPUSCULAR HEMOGLOBIN 29.2 pg (27.0-33.0); MEAN CORPUSCULAR VOLUME 85.8 fl (80.0-96.0); MONO % 6.1 % (2.0-8.0); NEUTROPHILS # 11.5 10^3/uL (1.5-8.5); NEUTROPHILS % 71.3 % (36.0-66.0); PLATELET COUNT, AUTOMATED 260 10^3/uL (150-450); RED BLOOD COUNT 5.42 10^6/uL (4.00-5.40); WHITE BLOOD COUNT 16.1 10^3/uL (4.0-10.0)
[2020-11-19] MEDS: LEVALBUTEROL 1.25 MG/0.5 ML CONCENTRATE NEB INH SCH ×3 (07:51→08:20)
[2020-11-19 08:16] LABS: THYROID STIMULATING HORMONE 8.23 uIU/ML (0.358-3.740); THYROXINE (T4) 7.9 UG/DL (4.5-12.0)
--- NOTE | 2020-11-19 08:39 | REPVR ---
PROCEDURE INFORMATION: Exam: XR Chest Exam date and time: 11/19/2020 5:13 AM Age: 30 years old Clinical indication: Other: Cough/sob TECHNIQUE: Imaging protocol: XR of the chest. Views: 1 view. COMPARISON: CR Ribs uni W-PA CHEST ONLY 04/11/2020 3:45 PM FINDINGS: Lungs: Unremarkable. No consolidation. Pleural spaces: Unremarkable. No pleural effusion. No pneumothorax. Heart/Mediastinum: Unremarkable. No cardiomegaly. Bones/joints: Unremarkable. IMPRESSION: No acute findings. Electronically signed by: Alexandra Carvajal On 11/19/2020 08:38:45 AM
[2020-11-19] MEDS ORDERED: PRED20TA PO (09:12)
[2020-11-19] MEDS ORDERED: BREAMIS10 MC (09:12)
[2020-11-19] MEDS ORDERED: HM S0.65 NARES (09:12)
[2020-11-19] MEDS ORDERED: PROAAER10 INH (09:12)
[2020-11-19] MEDS ORDERED: CLAR10CA3 PO (09:12)
[2020-11-19 09:48] VITALS: BP 140/90
== END 2020-11-19 09:53 | disposition home or self-care (01) ==
LOC: M ED 22:12
DX: R06.00 Dyspnea, unspecified (principal); B97.4 Respiratory syncytial virus as the cause of diseases classified elsewhere; R04.0 Epistaxis; I10 Essential (primary) hypertension; J45.909 Unspecified asthma, uncomplicated; Z79.51 Long term (current) use of inhaled steroids; Z79.899 Other long term (current) drug therapy
CPT/HCPCS: 71045; 80047; 82803; 84436; 84443; 84702; 85025; 85379; 87798; 94640; 96374; 99284; J2930

== ENCOUNTER 2021-01-02 12:03 | Inpatient (IN) | payer BC ==
[~2021-01-02] VITALS: Ht 170.2 cm; Wt 144.0 kg
[~2021-01-02 12:03] MED LIST changes: +BREAMIS10 MC; +CLAR10CA3 PO; +HM S0.65 NARES; +PROAAER10 INH
--- OUTSIDE RECORDS SUMMARY | 2021-01-02 12:10 | CCD ---
Author Author [facility] Organization [facility] Address Unknown Phone Unavailable Care Team Providers Care Training And Development Officer Name Role Phone Maring, Doug PA Unavailable Unavailable Maring, Doug PA Unavailable Unavailable Maring, Doug PA Unavailable Unavailable Maring, Doug PA Unavailable Unavailable Maring, Doug PA Unavailable Unavailable Maring, Doug PA Unavailable Unavailable Maring, Doug PA Unavailable Unavailable Maring, Doug PA Unavailable Unavailable Maring, Doug PA Unavailable Unavailable Maring, Doug PA Unavailable Unavailable Maring, Doug PA Unavailable Unavailable Maring, Doug PA Unavailable Unavailable Maring, Doug PA Unavailable Unavailable Maring, Doug PA Unavailable Unavailable Maring, Doug PA Unavailable Unavailable Maring, Doug PA Unavailable Unavailable LAROCK, Carlos Enrique VALE NP Unavailable Unavailable LAROCKCarlos Enrique NP Unavailable Unavailable LAROCKCarlos Enrique NP Unavailable Unavailable LAROCKCarlos Enrique NP Unavailable Unavailable LAROCKCarlos Enrique NP Unavailable Unavailable LAROCKCarlos Enrique NP Unavailable Unavailable LAROCKCarlos Enrique NP Unavailable Unavailable LAROCKCarlos Enrique NP Unavailable Unavailable LAROCKCarlos Enrique NP Unavailable Unavailable MICHELLEOCKCarlos Enrique NP Unavailable Unavailable Carlos Enrique SOLIS NP Unavailable Unavailable Carlos Enrique SOLIS NP Unavailable Unavailable Carlos Enrique SOLIS NP Unavailable Unavailable MICHELLEOCKCarlos Enrique NP Unavailable Unavailable MIHCELLEOCKCarlos Enrique NP Unavailable Unavailable MICHELLEOCKCarlos Enrique NP Unavailable Unavailable MICHELLEOCK, J AKANKSHA XEROX MACHINE OPERATOR Unavailable Unavailable Carlos Enrique SOLIS XEROX MACHINE OPERATOR Unavailable Unavailable Carlos Enrique SOLIS XEROX MACHINE OPERATOR Unavailable Unavailable Carlos Enrique SOLIS XEROX MACHINE OPERATOR Unavailable Unavailable LARCarlos Enrique BLISS XEROX MACHINE OPERATOR Unavailable Unavailable LARIZAIAH, Carlos Enrique VALE XEROX MACHINE OPERATOR Unavailable Unavailable Feola, T Deloris PA Unavailable Unavailable Feola, T Deloris PA Unavailable Unavailable Feola, T Deloris PA Unavailable Unavailable Feola, T Deloris PA Unavailable Unavailable Feola, T Deloris PA Unavailable Unavailable Feola, T Deloris PA Unavailable Unavailable Feola, T Deloris PA Unavailable Unavailable Feola, T Deloris PA Unavailable Unavailable Feola, T Deloris PA Unavailable Unavailable Feola, T Deloris PA Unavailable Unavailable Feola, T Deloris PA Unavailable Unavailable Feola, T Deloris PA Unavailable Unavailable Feola, T Deloris PA Unavailable Unavailable Feola, T Deloris PA Unavailable Unavailable Feola, T Deloris PA Unavailable Unavailable Feola, T Deloris PA Unavailable Unavailable Feola, T Deloris PA Unavailable Unavailable Feola, T Deloris PA Unavailable Unavailable Feola, T Deloris PA Unavailable Unavailable Feola, T Deloris PA Unavailable Unavailable Feola, T Deloris PA Unavailable Unavailable Feola, T Deloris PA Unavailable Unavailable Feola, T Deloris PA Unavailable Unavailable Feola, T Deloris PA Unavailable Unavailable Feola, T Deloris PA Unavailable Unavailable Feola, T Deloris PA Unavailable Unavailable Feola, T Deloris PA Unavailable Unavailable Feola, T Deloris PA Unavailable Unavailable Feola, T Deloris PA Unavailable Unavailable Feola, T Deloris PA Unavailable Unavailable Feola, T Deloris PA Unavailable Unavailable Feola, T Deloris PA Unavailable Unavailable Feola, T Deloris PA Unavailable Unavailable Feola, T Deloris PA Unavailable Unavailable Feola, T Deloris PA Unavailable Unavailable Feola, T Deloris PA Unavailable Unavailable Feola, T Deloris PA Unavailable Unavailable Feola, T Deloris PA Unavailable Unavailable Feola, T Deloris PA Unavailable Unavailable Feola, T Deloris PA Unavailable Unavailable Feola, T Deloris PA Unavailable Unavailable Re-disclosure Warning The records that [...] is protected by Article 27-F of the [facility] Public Health law. If you continue you may have access to information: Regarding HIV / AIDS; Provided by facilities licensed or operated by the [facility] Office of Mental Health; or Provided by the [facility] Office for People With Developmental Disabilities. If such information is present, then the following [facility] mandated warning applies: This information has [...] law may result in a fine or [facility] sentence or both. A general authorization for the release of medical or other information is NOT sufficient authorization for further disc losure. Family History Family Member Name Family Member Gender Family Member Status Date o f Status Description Data Source(s) Unknown Male Problem [facility] ([facility]) Encounters Encounter Providers Location Date Indications Data Source(s ) Outpatient Attender: AKANKSHA SOLIS NP 09/08 09:35:22 AM EDT - 09/26/2020 11:56:49 AM EDT [facility] ([facility] ) Outpatient 09/25/2020 07:25:59 PM EDT [facility] ([facility]) Outpatient Attender: Doug MCMANUS 09/04/19 21 01:06:54 PM EDT - 09/03/2020 02:32:24 PM EDT [facility] ([facility] ) Outpatient Attender: Deloris MCMANUS 021 10:13:48 AM EDT - 07/13/2020 10:43:57 AM EDT [facility] ([facility] ) Medications No Information Insurance Providers Payer name Policy type / Coverage type Policy ID Covered constitution party ID Covered constitution party's relationship to boucher Policy Boucher Plan Information MEDICAID [place] [id number] 18 [id number] [facility] CO [id number] MVP (pr) Commercial [id number] Self [id number] MVP (pr) Commercial [id number] Self [id number] [employer] [place] Blue Cross/B lue Shield [id number] Self [id number] Needs Workers Comp Information WorkComp Health Claim [id number] Employee [id number] [employer] [place] Blue Cross/B lue Shield [id number] Self [id number] [facility] [id number] FA2 [id number] BCBS EMPIRE [place] DIV [id number] FA2 [id number] MEDICAID M [id number] S [id number] [facility] O [id number] S [id number] MEDICAID [id number] MEDICAID -O/P [id number] 18 [id number] EMPIRE BLUE CROSS BLUE SHIELD -O/P [id number] 19 [id number] UNHC AMERICHOICE XIX -HMO [id number] 18 [id number] MEDICAID -O/P EMERGENCY ROOM [id number] 18 [id number] [facility] P [id number] S [id number] [facility] [id number] FA2 [id number] BCBS EMPIRE YUNIER DIV [id number] FA2 [id number] [employer] PPO 302/307 [id number] SP [id number] EXCELLUS BCBS B [id number] S [id number] EXCELLUS CN[place] BLUESHIELD BS [id number] 18 [id number] [employer]BS [place] PPO 302/307 [id number] SP [id number] [facility] [id number] 80 [id number] [facility] [id number] MEDICAID [id number] SP [id number] Problems, Conditions, and Diagnoses No Information Surgeries/Procedures No Information Results ID Date Data Source [id number] 11/19/2020 04:30:00 AM EDT [facility] Name Value Range Interpretation Code Description Data Donna rce(s) Supporting Document(s) SARS-CoV-2 (COVID 19) NEGATIVE - SARS-CoV-2 (COVID19) [facility] This lab was ordered by [facility] a nd reported by [facility]. Procedure Social History No Information
--- OUTSIDE RECORDS SUMMARY | 2021-01-02 15:30 | CCD ---
Author Author [facility] Organization [facility] Address Unknown Phone Unavailable Care Team Providers Care Wind Turbine Mechanic Name Role Phone Maring, Doug PA Unavailable [...] Unavailable Unavailable MICHELLEOCKCarlos Enrique NP Unavailable Unavailable MICHELLEOCKCarlos Enrique NP Unavailable Unavailable MICHELLEOCKCarlos Enrique NP Unavailable Unavailable MICHELLEOCK, J AKANKSHA CONTACT LENS CUTTER Unavailable Unavailable Carlos Enrique SOLIS CONTACT LENS CUTTER Unavailable Unavailable Carlos Enrique SOLIS CONTACT LENS CUTTER Unavailable Unavailable Carlos Enrique SOLIS CONTACT LENS CUTTER Unavailable Unavailable LARCarlos Enrique BLISS CONTACT LENS CUTTER Unavailable Unavailable LARIZAIAH, Carlos Enrique VALE CONTACT LENS CUTTER Unavailable Unavailable Feola, T Deloris PA Unavailable [...] is protected by Article 27-F of the [facility] Public Health law. If you continue you may have access to information: Regarding HIV / AIDS; Provided by facilities licensed or operated by the [facility] Office of Mental Health; or Provided by the [facility] Office for People With Developmental Disabilities. If such information is present, then the following [facility] mandated warning applies: This information has [...] law may result in a fine or skilled nursing sentence or both. A general authorization for [...] type / Coverage type Policy ID Covered libertarian ID Covered libertarian's relationship to boucher Policy Boucher Plan Information MEDICAID [place] [id number] 18 [id number] [facility] [place] [id number] 18 [id number] MVP (pr) Commercial [id number] Self [id number] MVP (pr) Commercial [id number] Self [id number] [employer] - [place] Blue Cross/B lue Shield [id number] Self [id number] Needs Workers Comp Information WorkComp Health Claim [id number] Employee [id number] [employer] - [place] Blue Cross/B lue Shield [id number] Self [id number] [facility] [id number] FA2 [id number] BCBS EMPIRE YUNIER DIV [id number] FA2 [id number] MEDICAID M [id number] S [id number] [facility] O [id number] S [id number] MEDICAID [id number] 18 [id number] MEDICAID -O/P [id number] 18 [id number] EMPIRE BLUE CROSS BLUE SHIELD -O/P [id number] 19 [id number] UNHC AMERICHOICE XIX -HMO [id number] 18 [id number] MEDICAID -O/P EMERGENCY ROOM [id number] 18 [id number] [facility] P [id number] S [id number] [facility] [id number] FA2 [id number] BCBS EMPIRE YUNIER DIV [id number] FA2 [id number] [place] PPO 302/307 [id number] SP [id number] [employer] BCBS B [id number] S [id number] EX[employer] CNY BLUESHIELD BS [id number] 18 [id number] [place]BS [place] PPO 302/307 [id number] SP [id number] [facility] [id number] 80 [id number] [facility] [id number] MEDICAID [id number] SP [id number] Problems, Conditions, and Diagnoses No Information Surgeries/Procedures No Information Results ID Date Data Source [id number] 11/19/2020 04:30:00 AM EDT [facility] Name Value Range Interpretation Code Description Data Donna rce(s) Supporting Document(s) SARS-CoV-2 (COVID 19) NEGATIVE - SARS-CoV-2 (COVID19) [facility] This lab was ordered by [facility] a nd reported by [facility]. Procedure Social History No Information
[2021-01-02] MEDS ORDERED: methylPREDNISolone 125MG 2ML VIAL IV ONE (15:35)
[2021-01-02] MEDS ORDERED: ALBUTEROL 90 MCG/ACT 8GM HFA INHALER INH ONE (15:35)
[2021-01-02 16:03] LABS: BASO # 0.1 10^3/uL (0.0-0.2); BASO % 0.5 % (0.0-1.0); EOS # 0.8 10^3/uL (0.0-0.5); EOS % 4.1 % (0.0-3.0); HEMATOCRIT 47.4 % (36.0-47.0); HEMOGLOBIN 15.8 g/dl (12.0-15.5); LYMPH # 2.3 10^3/uL (1.5-5.0); LYMPH % 11.9 % (24.0-44.0); MEAN CORPUSCULAR HGB CONC 33.3 g/dl (32.0-36.5); MEAN CORPUSCULAR VOLUME 87.1 fl (80.0-96.0); MONO % 5.5 % (2.0-8.0); NEUTROPHILS # 14.8 10^3/uL (1.5-8.5); NEUTROPHILS % 77.4 % (36.0-66.0); PLATELET COUNT, AUTOMATED 252 10^3/uL (150-450); RED BLOOD COUNT 5.44 10^6/uL (4.00-5.40); WHITE BLOOD COUNT 19.1 10^3/uL (4.0-10.0)
--- NOTE | 2021-01-02 17:00 | REP ---
INDICATION: SOB COMPARISON: 11/19/2020. TECHNIQUE: PA/Lateral FINDINGS: Lungs: Clear, no infiltrate. Heart: Normal in size. Mediastinum: Mediastinal silhouette unremarkable. Pleural angles: Unremarkable.. Bones and soft tissues: Unremarkable. IMPRESSION: No acute pulmonary disease. <Electronically signed by Lino Davis > 01/02/21 [id number]
[2021-01-02] MEDS ORDERED: OMEPRAZOLE 20 MG CAP PO ONE (17:20)
[2021-01-02] MEDS ORDERED: PROAAER10 INH ×2 (17:32→22:21)
[2021-01-02] MEDS ORDERED: OMEP40CA4 PO (17:32)
[2021-01-02] MEDS ORDERED: CLEV1MIS25 XX (17:32)
[2021-01-02] MEDS ORDERED: ALBU83IN NEB (17:32)
[2021-01-02] MEDS ORDERED: PRED20TA PO (17:32)
[2021-01-02] MEDS ORDERED: MAG SULF 1GM/100ML (MAG RUN) 1 GM in IV 1 EA IV ONE ×2 (18:00→20:05)
[2021-01-02] MEDS: COMBIVENT RESPIMAT 100-20MCG INHALER 4GM INH SCH ×3 (18:18→20:23)
[2021-01-02 20:19] LABS: VENOUS BASE EXCESS -4.1 (-2.0-2.0); VENOUS HCO3 19.6 MEQ/L (23.0-27.0); VENOUS O2 SATURATION 90.5 % (60.0-80.0); VENOUS PARTIAL PRESSURE CO2 32.6 mmHg (38.0-50.0); VENOUS PARTIAL PRESSURE O2 57.1 mmHg (30.0-50.0); VENOUS PH 7.397 UNITS (7.330-7.430); VENOUS TOTAL CO2 20.6 MEQ/L (24.0-28.0)
[2021-01-02 20:34] LABS: INR 1.01; PROTHROMBIN TIME 13.7 SECONDS (12.7-14.5)
[2021-01-02 20:37] LABS: D-DIMER QUANT 324.05 ng/ml (<500)
[2021-01-02 22:15] LABS: CK-MB VALUE MASS 1.7 NG/ML (<3.6); CPK CREATINE PHOSPHOKINASE 163 U/L (26-192); MB/CK RELATIVE INDEX 1.04 (< OR =4); THYROXINE (T4) 7.8 UG/DL (4.5-12.0); TROPONIN I < 0.02 NG/ML (< 0.10)
[2021-01-02] MEDS ORDERED: HOME MED LIST COMPLETE! XX SCH (22:25)
[2021-01-02] MEDS ORDERED: ACETAMINOPHEN TAB 650MG DOSE (2X325MG) PO PRN (22:55)
[2021-01-02] MEDS ORDERED: MOM 30ML SUSPENSION UDC PO PRN (22:55)
[2021-01-02] MEDS ORDERED: LEVALBUTEROL 1.25 MG/0.5 ML CONCENTRATE NEB INH PRN (22:55)
[2021-01-02] MEDS ORDERED: hydroCHLOROthiazide 12.5 MG CAPSULE PO ONE (23:15)
[2021-01-02] MEDS: NS 1,000 ML IV SCH (23:21)
--- NOTE | 2021-01-02 23:24 | HPEPDOC ---
[facility] Medical History & Physical Date of Admission Jan 02, 2021 Date of Service: Jan 02, 2021 History and Physical CHIEF COMPLAINT: Shortness of breath HISTORY OF PRESENT ILLNESS: 30-year-old female who reports a history of asthma, hypertension, hypothyroidism who presents to the emergency department complaining of a one-month history of shortness of breath. Patient endorses that 1 month ago she was diagnosed with RS V shortly afterwards her roommate was diagnosed with Covid she was never tested but she had symptoms similar to that of Covid including cough, fever, loss of smell and taste, and fatigue. She assumed she had Covid and self quarantine for 2 weeks. Around that time her shortness of breath persisted and has been almost a month which is what prompted her to come to emergency department because she felt it was worsening over the past week or so. In the emergency department patient was found to be wheezing throughout and was given nebulizer treatments with marked improvement. She felt better however despite the treatments she was still saturating around 87% on exertion. She was also found to have leukocytosis. Patient denies being prescribed steroids recently. She denies dysuria denies sputum with her cough. Denies current fevers or chills. Denies any chest pain or palpitations. Patient admitted to medical service for acute asthma exacerbation possibly trigger includes recent RSV and possible covid infection. She also has leukocytosis of unknown significance at this point. She reports being unvaccinated. PAST MEDICAL/SURGICAL HISTORY: Hypertension denies being on medications were Hypothyroidism denies being on medications for Asthma takes inhalers as needed Obesity Denies previous surgeries SOCIAL HISTORY: Denies alcohol use Denies tobacco use currently. Was smoking until one month ago half a pack per day until she got RSV infection. Denies illicit drug use FAMILY HISTORY: Reviewed and none contributory to this admission ALLERGIES: Please see below. REVIEW OF SYSTEMS: 10 point review of systems complete all negative otherwise stated in HPI HOME MEDICATIONS: Please see below. PHYSICAL EXAMINATION: Constitutional: Awake and alert, in no apparent distress. obese ENT: Sclera are clear. Mucosa is moist. Respiratory: Lungs diminished breath sounds with some scattered wheezing bilaterally. No respiratory distress. Able to speak in full sentences without becoming short of breath. Cardiovascular: RRR S1 and S2 are normal Gastrointestinal: Abdomen is soft, obese non distended, non tender, BS present. Musculoskeletal: No lower extremity edema. Neurologic: No focal neurological deficit. Mental Status: A&O x3, normal affect Skin: No visible rashes LABORATORY DATA: See below. IMAGING: See chart MICROBIOLOGY: Please see below. ASSESSMENT/PLAN 30-year-old female presents because of worsening shortness of breath over the past 1 month for acute asthma exacerbation with leukocytosis of unknown significance. Admitted for further medical workup and management. # Acute asthma exacerbation with hypoxia: Scheduled Duonebs. Xopenex nebs PRN. Symbicort. Upper mental oxygen to maintain saturation >92%. IV solumedrol q8h. incentive spirometry. Despite the cold test being negative I suspect based on history patient might be recovering from a COVID19 infection which may have triggered her asthma exacerbation. # Leukocytosis: No known recent steroid use. No obvious source of infection identified. Afebrile. Chest x-ray not suggestive of pneumonia. Fu UA. Fu procalcitonin. Fu BCX. Held off on Abx for now. # Hypertension: Not taking medications for hypertension home. Started on hydrochlorothiazide. Monitor blood pressure and titrate as necessary. # ? Hypothyroidism: Patient endorses history of hypothyroidism but denies being on any medications for it. Free T4 and TSH normal. # Class 3 Obesity: BMI 49.3. Complicates care # DVT prophylaxis: Lovenox [facility] Hospitalist Vital Signs Vital Signs Date Time Temp Pulse Resp B/P (MAP) Pulse Ox O2 Delivery O2 Flow Rate FiO2 01/02/21 20:20 98.5 125 23 136/98 (111) 91 Room Air Laboratory Data Labs 24H Laboratory Tests 2 01/02/21 15:43: Immature Granulocyte % (Auto) 0.6, Neutrophils (%) (Auto) 77.4H, Lymphocytes (%) (Auto) 11.9L, Monocytes (%) (Auto) 5.5, Eosinophils (%) (Auto) 4.1H, Basophils (%) (Auto) 0.5, Neutrophils # (Auto) 14.8H, Lymphocytes # (Auto) 2.3, Monocytes # (Auto) 1.0H, Eosinophils # (Auto) 0.8H, Basophils # (Auto) 0.1, Nucleated Red Blood Cells % (auto) 0.0 01/02/21 15:52: POC Glucose (Misc Panel) 99, POC Sodium (Misc Panel) 138, POC Potassium (Misc Panel) 4.1, POC Chloride (Misc Panel) 105, POC Total CO2 (Misc Panel) 20.0L, POC Blood Urea Nitrogen (Misc Panel 6L, POC Ionized Calcium (Misc Panel) 4.4L, POC Creatinine (Misc Panel) 0.6, POC Hematocrit (Misc Panel) 50.0 01/02/21 20:10: Prothrombin Time 13.7, Prothromb Time International Ratio 1.01, D-Dimer, Quantitative 324.05, Blood Gas Bicarbonate Standard 21.0, Venous Blood pH 7.397, Venous Blood Partial Pressure CO2 32.6L, Venous Blood Partial Pressure O2 57.1H, Venous Blood Total Carbon Dioxide 20.6L, Venous Blood HCO3 19.6L, Venous Blood Oxygen Saturation 90.5H, Venous Blood Base Excess -4.1L 01/02/21 21:35: Lactic Acid Level 1.7, Total Creatine Kinase 163, Creatine Kinase MB 1.7, Creatine Kinase MB Relative Index 1.04, Troponin I < 0.02, Thyroid Stimulating Hormone (TSH) 1.900, Thyroxine (T4) 7.8 CBC/BMP Laboratory Tests 01/02/21 15:43 Microbiology Microbiology 01/02/21 Respiratory Virus Panel (PCR) ([facility]) - Final, Complete Home Medications Scheduled PRN Albuterol Sulfate (Proair Hfa) 8.5 Gm Hfa.aer.ad, 2 PUFF INH Q4H PRN for SHORTNESS OF BREATH Allergies Coded Allergies: No Known Allergies (Verified , 11/19/20) MITA WESTON MD Jan 02, 2021 23:24
--- OUTSIDE RECORDS SUMMARY | 2021-01-02 23:24 | CCD ---
Author Author [facility] Organization [facility] Address Unknown Phone Unavailable Care Team Providers Care Limnology Teacher Name Role Phone Maring, Doug PA Unavailable [...] Enrique NP Unavailable Unavailable MICHELLEOCK, J AKANKSHA TOUR ACTOR Unavailable Unavailable Carlos Enrique SOLIS TOUR ACTOR Unavailable Unavailable Carlos Enrique SOLIS TOUR ACTOR Unavailable Unavailable Carlos Enrique SOLIS TOUR ACTOR Unavailable Unavailable LARCarlos Enrique BLISS TOUR ACTOR Unavailable Unavailable LARIZAIAH, Carlos Enrique VALE TOUR ACTOR Unavailable Unavailable Feola, T Deloris PA Unavailable [...] is protected by Article 27-F of the [facility] Public Health law. If you continue you may have access to information: Regarding HIV / AIDS; Provided by facilities licensed or operated by the [facility] Office of Mental Health; or Provided by the [facility] Office for People With Developmental Disabilities. If such information is present, then the following [facility] mandated warning applies: This information has [...] law may result in a fine or longterm sentence or both. A general authorization for [...] boucher Policy Boucher Plan Information MEDICAID [place] [id number] 18 [id number] [facility] [place] [id number] MVP (pr) Commercial [id number] Self [id number] MVP (pr) Commercial [id number] Self [id number] [employer] and Blue Shield - [place] Blue Cross/B lue Shield [id number] Self [id number] Needs Workers Comp Information WorkComp Health Claim [id number] Employee [id number] [employer] Blue [employer] - [place] Blue Cross/B lue Shield [id number] Self [id number] [facility] [id number] FA2 [id number] BCBS EMPIRE YUNIER DIV [id number] FA2 [id number] MEDICAID M [id number] S [id number] [facility] O [id number] S [id number] MEDICAID [id number] MEDICAID -O/P [id number] 18 [id number] EMPIRE BLUE CROSS BLUE SHIELD -O/P [id number] 19 [id number] UNHC AMERICHOICE XIX -HMO [id number] 18 [id number] MEDICAID -O/P EMERGENCY ROOM [id number] 18 [id number] [facility] P [id number] S [id number] [facility] [id number] FA2 89 [id number] BCBS EMPIRE YUNIER DIV [id number] FA2 [id number] BCBS [place] PPO 302/307 [id number] SP [id number] [employer] BCBS B [id number] S [id number] [employer] CN[employer] BLUESHIELD BS [id number] 18 [id number] BCBS [place] PPO 302/307 [id number] SP [id number] [facility] [id number] 80 [id number] [facility] [id number] MEDICAID [id number] SP [id number] Problems, Conditions, and Diagnoses No Information Surgeries/Procedures No Information Results ID Date Data Source [id number] 11/19/2020 04:30:00 AM EDT [facility] Name Value Range Interpretation Code Description Data Donna rce(s) Supporting Document(s) SARS-CoV-2 (COVID 19) NEGATIVE - SARS-CoV-2 (COVID19) [facility] This lab was ordered by [facility] a nd reported by [facility]. Procedure Social History No Information
[2021-01-03 00:45] VITALS: BP 138/85
[2021-01-03] MEDS: methylPREDNISolone 125MG 2ML VIAL IV SCH ×4 (01:17→23:35)
[2021-01-03] MEDS: IPRATROPIUM 0.5MG/ALBUTEROL 2.5MG INH SOL UD 3ML (DUONEB) NEB SCH ×4 (01:30→20:00)
[2021-01-03] MEDS: guaiFENesin ER 600 MG TAB PO PRN (03:26)
[2021-01-03] MEDS: BENZONATATE 100MG CAPSULE PO PRN (03:26)
[2021-01-03 06:00] VITALS: BP 126/85
[2021-01-03] MEDS: NS 1,000 ML IV SCH ×3 (06:32→23:35)
[2021-01-03] MEDS: SYMBICORT 80/4.5MCG INHALER 6GM INH SCH ×2 (08:00→20:20)
[2021-01-03 08:26] LABS: HEMOGLOBIN 15.5 g/dl (12.0-15.5); MEAN CORPUSCULAR HEMOGLOBIN 28.9 pg (27.0-33.0); MEAN CORPUSCULAR HGB CONC 33.7 g/dl (32.0-36.5); MEAN CORPUSCULAR VOLUME 85.7 fl (80.0-96.0); PLATELET COUNT, AUTOMATED 287 10^3/uL (150-450); RED BLOOD COUNT 5.37 10^6/uL (4.00-5.40); WHITE BLOOD COUNT 25.8 10^3/uL (4.0-10.0)
[2021-01-03] MEDS: PANTOPRAZOLE 40MG TAB (PROTONIX) PO SCH (08:36)
[2021-01-03] MEDS: ENOXAPARIN 40MG/0.4ML SYRINGE (J1650 PER 10MG) SC SCH (08:37)
[2021-01-03] MEDS: DOCUSATE SODIUM 100MG CAPSULE PO SCH ×2 (08:37→20:52)
[2021-01-03 08:44] LABS: ALBUMIN 3.8 GM/DL (3.2-5.2); ALT/SGPT 34 U/L (12-78); BILIRUBIN,TOTAL 0.3 MG/DL (0.2-1.0); BLOOD UREA NITROGEN 7 MG/DL (7-18); CALCIUM LEVEL 9.3 MG/DL (8.5-10.1); CARBON DIOXIDE LEVEL 19 MEQ/L (21-32); CHLORIDE LEVEL 109 MEQ/L (98-107); CREATININE FOR GFR 0.72 MG/DL (0.55-1.30); GLOMERULAR FILTRATION RATE > 60.0 (>60); GLUCOSE, FASTING 134 MG/DL (70-100); MAGNESIUM LEVEL 2.1 MG/DL (1.8-2.4); POTASSIUM SERUM 4.3 MEQ/L (3.5-5.1); SODIUM LEVEL 138 MEQ/L (136-145); TOTAL PROTEIN 7.9 GM/DL (6.4-8.2)
[2021-01-03] MEDS ORDERED: hydroCHLOROthiazide 12.5 MG CAPSULE PO SCH (09:00)
[2021-01-03] MEDS ORDERED: hydrOXYzine 25 MG TAB PO PRN (09:15)
--- NOTE | 2021-01-03 10:36 | IPNPDOC ---
Text Note Date of Service The patient was seen on 01/03/21. NOTE S: Patient seen and evaluated at bedside this a.m. she tells me she is feeling better today compared to when she first presented to the hospital. Reports productive cough but cannot tell me what she is coughing up as she tells me that she "just swallows it." She does tell me she is feeling anxious and relates her elevated heart rate to her anxiety. Reports chest congestion. Denies chest pain, palpitations, abdominal pain, nausea, vomiting. Patient tells me she has not noticed any changes in her urination or bowel movements. O: GEN: Alert, awake, sitting up in bed, NAD HEENT: NC/AT, EOMI, nares patent, Ventimask on face, moist mucous membranes CARDIO: Tachycardic, regular rhythm, normal heart sounds, no MRG PULM: CTA b/l, rhonchi throughout bilaterally, no rales/wheezing, no accessory muscles used ABD: soft, nontender, nondistended, normal BS EXTREMITIES: no edema, normal ROM IMAGING: (01/02) CXR No acute pulmonary disease. A/P: Kimberlee is a 30-year-old female past medical history of asthma and recent RSV infection who presents with worsening shortness of breath and productive cough found to have leukocytosis of unknown etiology and SpO2 87% on exertion following nebulizer treatments in the ED, now with SpO2 89% on Ventimask 40 FiO2 and Solu-Medrol, worsening leukocytosis, and unchanged symptoms. #Hypoxia 2/2 acute asthma exacerbation 2/2 RSV vs COVID-19- unchanged SpO2 89% on Ventimask 40 FiO2 RSV PCR negative Continue Solu-Medrol 80 mg every 8 hours Continue DuoNeb every 6 hours, Symbicort 2 puff twice daily Continue benzonatate 100 mg 3 times daily PRN, Mucinex 600 mg twice daily as needed Of note, patient was seen and evaluated for worsening shortness of breath and cough at [facility] ED 11/18. At that time, she was diagnosed with RSV and advised to continue supportive care. At that time, patient's roommate was diagnosed with COVID-19 and patient reported symptoms of cough, fever, anosmia, loss of taste, fatigue, but did not get COVID-19 tested and has remained unvaccinated for COVID-19. Patient assumed she had Covid and self-quarantined for 2 weeks, and now says that her shortness of breath and cough persisted despite resolution of her other symptoms over the past month. #Leukocytosis of unknown etiology- worsening, most likely 2/2 Solu-Medrol Patient remains afebrile. CXR performed 01/02 as noted above. (01/03) WBC 25.8 Pro-Arturo pending Fluid culture, blood culture pending Urine Legionella, strep pneumo, urine strep pneumo pending Continue holding off on ABX for now. Of note, patient denies recent steroid use prior to ED presentation 01/02, where she was found to have WBC 19.1. #HTN, acute-controlled BP this a.m. 126/85 Continue HCTZ 12.5 mg daily Continue BP monitoring. Will titrate BP meds as needed #Anxiety, chronic, unmedicated Heart rate 116 during evaluation this a.m. which patient attributes to feeling anxious about current situation Start hydroxyzine 25 mg every 8H as needed #Possible hypothyroidism, chronic, unmedicated-stable (01/02) TSH 1.9, T4 7.8 #Obesity, class III with BMI 49.3 Complicates care #DVT Prophylaxis On Lovenox DIET: Regular ACTIVITY: As tolerated DISPO: Home, pending clinical improved Attending Attestation: I saw and evaluated the patient. I agree with the finding and the plan of care as documented in the residents note. VS,Fishbone, I+O VS, Fishbone, I+O Laboratory Tests 01/02/21 15:43 01/03/21 07:29 Vital Signs Date Time Temp Pulse Resp B/P (MAP) Pulse Ox O2 Delivery O2 Flow Rate FiO2 01/03/21 07:55 15.0 40 01/03/21 06:00 98.3 124 18 126/85 (99) 89 Nasal Cannula I&O- Last 24 Hours up to 6 AM 01/03/21 05:59 Intake Total 270 ml Balance 270 ml Alexandra Urrutia DO Jan 03, 2021 10:35 RAMESH REYNA MD Jan 04, 2021 07:39
[2021-01-03 14:00] VITALS: BP_SYST 132; BP_SYST 140; BP_DIAS 85; BP_DIAS 88
[2021-01-03] MEDS ORDERED: NS 1,000 ML IV ONE (15:05)
[2021-01-03 22:00] VITALS: BP 138/87; O2SAT 92; O2SAT 94
[2021-01-04] MEDS: IPRATROPIUM 0.5MG/ALBUTEROL 2.5MG INH SOL UD 3ML (DUONEB) NEB SCH ×4 (01:24→20:00)
[2021-01-04 03:45] VITALS: O2SAT 92
[2021-01-04] MEDS: NS 1,000 ML IV SCH ×3 (05:46→19:44)
[2021-01-04 06:00] VITALS: BP 147/73
[2021-01-04 06:57] LABS: HEMATOCRIT 43.4 % (36.0-47.0); HEMOGLOBIN 14.2 g/dl (12.0-15.5); MEAN CORPUSCULAR HEMOGLOBIN 28.6 pg (27.0-33.0); MEAN CORPUSCULAR HGB CONC 32.7 g/dl (32.0-36.5); MEAN CORPUSCULAR VOLUME 87.3 fl (80.0-96.0); PLATELET COUNT, AUTOMATED 271 10^3/uL (150-450); RED BLOOD COUNT 4.97 10^6/uL (4.00-5.40)
[2021-01-04 07:06] LABS: WHITE BLOOD COUNT 32.3 10^3/uL (4.0-10.0)
[2021-01-04 07:13] LABS: BLOOD UREA NITROGEN 11 MG/DL (7-18); CALCIUM LEVEL 8.8 MG/DL (8.5-10.1); CARBON DIOXIDE LEVEL 23 MEQ/L (21-32); CHLORIDE LEVEL 110 MEQ/L (98-107); CREATININE FOR GFR 0.71 MG/DL (0.55-1.30); GLOMERULAR FILTRATION RATE > 60.0 (>60); GLUCOSE, FASTING 127 MG/DL (70-100); POTASSIUM SERUM 4.3 MEQ/L (3.5-5.1); SODIUM LEVEL 142 MEQ/L (136-145)
[2021-01-04 08:04] LABS: LYMPHOCYTES 7 % (16-44); NEUTROPHILS 93 % (28-66); PLATELET ESTIMATE NORMAL (NORMAL)
[2021-01-04] MEDS: SYMBICORT 80/4.5MCG INHALER 6GM INH SCH ×2 (08:19→20:59)
[2021-01-04] MEDS: DOCUSATE SODIUM 100MG CAPSULE PO SCH ×2 (08:20→20:00)
[2021-01-04] MEDS: PANTOPRAZOLE 40MG TAB (PROTONIX) PO SCH (08:28)
[2021-01-04] MEDS: methylPREDNISolone 40MG 1ML VIAL IV SCH ×3 (08:29→23:44)
[2021-01-04] MEDS: ENOXAPARIN 40MG/0.4ML SYRINGE (J1650 PER 10MG) SC SCH (08:30)
[2021-01-04] MEDS ORDERED: hydrOXYzine 25 MG TAB PO ONE (09:40)
[2021-01-04 10:00] VITALS: O2SAT 91
--- NOTE | 2021-01-04 10:44 | IPNPDOC ---
Text Note Date of Service The patient was seen on 01/04/21. NOTE S: Patient seen and evaluated at bedside this a.m. Reports feeling well and that she has had difficulty maintaining adequate oxygen saturation, but denies feeling short of breath. Reports occasional productive cough, but tells me she swallows whatever she ends up coughing up. She tells me she has been using both incentive spirometry and Acapella. Reports feeling anxious, and tells me she has not asked for anxiety medication. She tells me she has had difficulty sleeping and is afraid to sleep at night because of applications with her elevated heart rate and low SPO2. Denies palpitations, chest pain, lightheadedness. O: GEN: Alert, awake, sitting up in bed, NAD HEENT: NC/AT, EOMI, nares patent, Ventimask on face, moist mucous membranes, Mallampati 1 CARDIO: Tachycardic, regular rhythm, normal heart sounds, no MRG PULM: CTA b/l, no rales/rhonchi/wheezing, no accessory muscles used ABD: soft, nontender, nondistended, normal BS EXTREMITIES: no edema, normal ROM IMAGING: (01/02) CXR No acute pulmonary disease. (01/04) CTA Chest 1. Pulmonary emboli cannot be ruled out due to exam limitations as described above. 2. Limited evaluation of the lung church as described above. Subsegmental atelectatic changes are early pneumonia cannot be ruled out. A/P: Kimberlee is a 30-year-old female past medical history of asthma and recent RSV infection who presents with worsening shortness of breath and productive cough found to have leukocytosis of unknown etiology and SpO2 87% on exertion following nebulizer treatments in the ED, now with SpO2 91% on Ventimask 40 FiO2 and Solu-Medrol, worsening leukocytosis, no acute complaints. #Hypoxia 2/2 acute asthma exacerbation 2/2 RSV vs COVID-19 vs possible undiagnosed DEL- unchanged SpO2 % on Ventimask 40 FiO2 Start Solu-Medrol 40 mg every 8 hours Continue DuoNeb every 6 hours, Symbicort 2 puff twice daily Continue benzonatate 100 mg 3 times daily PRN, Mucinex 600 mg twice daily as needed Of note, patient was seen and evaluated for worsening shortness of breath and cough at [facility] ED 11/18. At that time, she was diagnosed with RSV and advised to continue supportive care. At that time, patient's roommate was diagnosed with COVID-19 and patient reported symptoms of cough, fever, anosmia, loss of taste, fatigue, but did not get COVID-19 tested and has remained unvaccinated for COVID-19. Patient assumed she had Covid and self-quarantined for 2 weeks, and now says that her shortness of breath and cough persisted despite resolution of her other symptoms over the past month. (01/02) RSV PCR negative. #Leukocytosis of unknown etiology- worsening, possibly 2/2 Solu-Medrol Patient remains afebrile. CXR performed 01/02 as noted above. (01/04) WBC 32.3 Pro-Arturo <0.05 Blood culture negative Fluid culture pending Urine Legionella Ag, strep pneumo Ag, urine strep pneumo pending Continue holding off on ABX for now. Of note, patient denies recent steroid use prior to ED presentation 01/02, where she was found to have WBC 19.1. (01/03) Mycoplasma pneumoniae IgM negative/IgG positive. #Tachycardia, asx, acute uncontrolled HR 104 this a.m. CTA to r/o possible PE, as noted above Continue to monitor #HTN, acute-controlled BP this a.m. 147/73 Continue lisinopril 10 mg nightly Stop HCTZ 12.5 mg daily Continue BP monitoring. Will titrate BP meds as needed #Anxiety, chronic, unmedicated Patient does tell me she feels very anxious and has not asked for anxiety medication. She believes her elevated HR is secondary to her uncontrolled anxiety. Give hydroxyzine 25 mg once Start hydroxyzine 25 mg every 8H #Possible hypothyroidism, chronic, unmedicated-stable (01/02) TSH 1.9, T4 7.8 #Obesity, class III with BMI 49.3 Complicates care #DVT Prophylaxis On Lovenox DIET: Regular ACTIVITY: As tolerated DISPO: Home, pending clinical improvement Attending Attestation: I saw and evaluated the patient. I agree with the finding and the plan of care as documented in the residents note. VS,Fishbone, I+O VS, Fishbone, I+O Laboratory Tests 01/04/21 06:12 Vital Signs Date Time Temp Pulse Resp B/P (MAP) Pulse Ox O2 Delivery O2 Flow Rate FiO2 10/27/21 10:00 91 Venturi Mask 15.0 40 01/04/21 06:00 97.7 104 20 147/73 (97) I&O- Last 24 Hours up to 6 AM 01/04/21 06:00 Intake Total 3053 ml Output Total 0 ml Balance 3053 ml Alexandra Urrutia DO Jan 04, 2021 10:44 RAMESH REYNA MD Jan 05, 2021 06:23
[2021-01-04] MEDS ORDERED: ISOVUE-370 76% 100ML VIAL As Ordered ONE (13:59)
[2021-01-04 14:00] VITALS: BP 137/72
[2021-01-04 14:09] LABS: MYCOPLASMA PNEUMONIAE IgG 122 U/mL (0-99); MYCOPLASMA PNEUMONIAE IgM <770 U/mL (0-769)
--- NOTE | 2021-01-04 14:46 | REP ---
INDICATION: r/o PE COMPARISON: Multiple the latest 05/28/[address] angio chest TECHNIQUE: CT angiography chest after the intravenous administration of 75 cc Isovue 370 attention pulmonary arteries. FINDINGS: There is suboptimal opacification of the pulmonary arterial vasculature is a such a degree that small, medium-sized, an even large there is no evidence of mediastinal or hilar adenopathy. There are no pleural or pericardial effusions. The imaged upper abdomen and imaged osseous structures are within normal limits. Evaluation of the lung church shows significant respiratory motion artifact throughout the exam. There appear to be scattered asymmetric somewhat patchy densities in the lung bases and in the right upper lobe. Pulmonary emboli could be obscured. IMPRESSION: 1. Pulmonary emboli cannot be ruled out due to exam limitations as described above. 2. Limited evaluation of the lung church as described above. Subsegmental atelectatic changes are early pneumonia cannot be ruled out. <Electronically signed by James Rivas > 01/04/21 [id number]
[2021-01-04 21:00] VITALS: BP 158/86
[2021-01-04 21:14] VITALS: BP 158/86
[2021-01-04] MEDS: hydrOXYzine 25 MG TAB PO SCH (21:14)
[2021-01-05] MEDS: IPRATROPIUM 0.5MG/ALBUTEROL 2.5MG INH SOL UD 3ML (DUONEB) NEB SCH ×2 (02:00→07:47)
[2021-01-05] MEDS: NS 1,000 ML IV SCH (03:29)
[2021-01-05] MEDS: hydrOXYzine 25 MG TAB PO SCH (05:26)
[2021-01-05 06:00] VITALS: BP 146/86
[2021-01-05 06:39] LABS: BASO % 0.2 % (0.0-1.0); HEMOGLOBIN 13.3 g/dl (12.0-15.5); LYMPH # 2.1 10^3/uL (1.5-5.0); LYMPH % 9.4 % (24.0-44.0); MEAN CORPUSCULAR HEMOGLOBIN 28.7 pg (27.0-33.0); MEAN CORPUSCULAR HGB CONC 33.3 g/dl (32.0-36.5); MEAN CORPUSCULAR VOLUME 86.4 fl (80.0-96.0); MONO # 0.8 10^3/uL (0.0-0.8); MONO % 3.6 % (2.0-8.0); NEUTROPHILS # 18.6 10^3/uL (1.5-8.5); NEUTROPHILS % 85.6 % (36.0-66.0); PLATELET COUNT, AUTOMATED 233 10^3/uL (150-450); RED BLOOD COUNT 4.63 10^6/uL (4.00-5.40); WHITE BLOOD COUNT 21.7 10^3/uL (4.0-10.0)
[2021-01-05] MEDS: guaiFENesin ER 600 MG TAB PO PRN (06:44)
[2021-01-05] MEDS: BENZONATATE 100MG CAPSULE PO PRN (06:44)
[2021-01-05 07:01] LABS: BLOOD UREA NITROGEN 14 MG/DL (7-18); CALCIUM LEVEL 8.6 MG/DL (8.5-10.1); CARBON DIOXIDE LEVEL 25 MEQ/L (21-32); CHLORIDE LEVEL 109 MEQ/L (98-107); CREATININE FOR GFR 0.66 MG/DL (0.55-1.30); GLOMERULAR FILTRATION RATE > 60.0 (>60); GLUCOSE, FASTING 122 MG/DL (70-100); POTASSIUM SERUM 4.3 MEQ/L (3.5-5.1); SODIUM LEVEL 137 MEQ/L (136-145)
[2021-01-05] MEDS: SYMBICORT 80/4.5MCG INHALER 6GM INH SCH (07:47)
[2021-01-05] MEDS: DOCUSATE SODIUM 100MG CAPSULE PO SCH (08:46)
[2021-01-05] MEDS: PANTOPRAZOLE 40MG TAB (PROTONIX) PO SCH (08:46)
[2021-01-05] MEDS: ENOXAPARIN 40MG/0.4ML SYRINGE (J1650 PER 10MG) SC SCH (08:46)
[2021-01-05 09:00] VITALS: O2SAT 96
[2021-01-05] MEDS ORDERED: predniSONE 20 MG TAB PO SCH (09:00)
--- NOTE | 2021-01-05 11:04 | DS.PDOC ---
Discharge Summary General Date of Admission Jan 02, 2021 at 22:51 Date of Discharge 01/05/2021 Attending Physician: RAMESH REYNA MD Discharge Summary PROCEDURES PERFORMED DURING STAY: None ADMITTING DIAGNOSES: 1. Acute asthma exacerbation with hypoxia 2. Leukocytosis, unknown etiology 3. HTN DISCHARGE DIAGNOSES: 1. Hypoxia 2/2 acute asthma exacerbation 2/2 RSV vs COVID-19 vs possible undiagnosed DEL 2. Leukocytosis of unknown etiology 3. Tachycardia, possibly 2/2 anxiety 4. Anxiety, chronic 5. HTN COMPLICATIONS/CHIEF COMPLAINT: Dysepnea, Shortness Of Breath, Wheezing. HISTORY OF PRESENT ILLNESS: Kimberlee is 30-year-old female PMH asthma, hypertension, former smoker who presents to the emergency department complaining of a one-month history of worsening shortness of breath. Patient endorses that 1 month ago she was diagnosed with RSV shortly afterwards, her roommate was diagnosed with Covid. Patient tells me she was never tested but had symptoms similar to that of Covid including cough, fever, loss of smell and taste, and fatigue. She assumed she had Covid and self-quarantined for 2 weeks. As of her symptoms have resolved, but her shortness of breath persisted and has been almost a month and she felt it was worsening over the past week or so. Denies being prescribed steroids recently. Denies dysuria, sputum with her cough. Denies current fevers or chills, chest pain, palpitations. She reports being unvaccinated. In the emergency department, patient was found to be wheezing throughout and was given nebulizer treatments with marked improvement. She felt better however despite the treatments she was still saturating around 87% on exertion. She was also found to have leukocytosis (WBC 19.1). RSV panel, COVID-19 negative. HOSPITAL COURSE: Patient admitted for acute asthma exacerbation with hypoxia and started on scheduled duonebs, Symbicort, Solu-Medrol 80 mg every 8H, Xopenex nebs as needed. Patient required Ventimask to maintain SPO2>90% and was noted to desaturate quickly with minimal exertion. She was transitioned from Solu-Medrol 80 mg Q8H to Solu-Medrol 40 mg Q8H, and eventually prednisone 40 mg daily prior to discharge. O2 ambulation test was performed 01/05 and the patient was found to maintain SpO2>90% on RA throughout the entire assessment. Of note, patient was found to have tachycardia (HR 100-110s) which was poorly controlled throughout hospitalization. Patient's D-dimer negative, but CTA performed 01/04 to r/o possible PE, imaging noted below. Patient did report significant anxiety throughout hospitalization and was started on hydroxyzine 25 mg every 8 hours. Patient's HR 69 prior to discharge, and was noted to increase (HR 120s) with ambulation. With regards to leukocytosis of unknown etiology, patient remained afebrile throughout hospitalization. Pro-Arturo, Blood culture, fluid culture negative. Myco plasma pneumoniae IgM negative/IgG positive. Antibiotics were held, as current bacterial infection was not suspected. Peripheral smear 01/04 unremarkable. Patient's leukocytosis worsened 01/04 (WBC 32.3), but began to improve 01/05 (WBC 21.7). Patient's additional chronic conditions were stable and uncomplicated throughout hospitalization. Patient was found to be medically optimized for discharge and advised to continue prednisone taper and follow-up with PCP. DISCHARGE MEDICATIONS: Please see below. ALLERGIES: Please see below. PHYSICAL EXAMINATION ON DISCHARGE: VITAL SIGNS: Please see below. GENERAL: Alert, awake, sitting up in bed, NAD HEENT: NC/AT, EOMI, nares patent, Ventimask on face, moist mucous membranes NECK: Supple CARDIOVASCULAR EXAMINATION: Tachycardic, regular rhythm, normal heart sounds, no MRG RESPIRATORY EXAMINATION: CTA bilaterally, no WRR, no accessory muscles used ABDOMINAL EXAMINATION: Soft, nontender, nondistended, normal bowel sounds EXTREMITIES: No edema, normal ROM SKIN: 2 cm bruise right medial malleolus, improving. No new rashes/abrasions NEUROLOGICAL EXAMINATION: No focal neuro deficits PSYCHIATRIC EXAMINATION: No depressed/anxious mood LABORATORY DATA: Please see below. IMAGING: (01/02) CXR No acute pulmonary disease. (01/04) CTA Chest 1. Pulmonary emboli cannot be ruled out due to exam limitations as described samara olsen. 2. Limited evaluation of the lung church as described above. Subsegmental atelectatic changes are early pneumonia cannot be ruled out. PROGNOSIS: Fair ACTIVITY: As tolerated DIET: Regular DISCHARGE PLAN: 1. F/u PCP DISPOSITION: Home DISCHARGE INSTRUCTIONS: 1. Hypoxia Prednisone taper, Symbicort 2. Leukocytosis F/u PCP to recheck CBC 3. Tachycardia, possibly 2/2 Anxiety F/u PCP to recheck HR 4. Anxiety F/u PCP for possible medication 5. HTN Continue Lisinopril 10mg ITEMS TO FOLLOWUP ON ON OUTPATIENT: 1. PCP- prednisone taper, anxiety unmedicated, HTN, possible DEL, CBC for recent leukocytosis, recheck HR DISCHARGE CONDITION: Stable TIME SPENT ON DISCHARGE: 25 minutes. Vital Signs/I&Os Vital Signs Date Time Temp Pulse Resp B/P (MAP) Pulse Ox O2 Delivery O2 Flow Rate FiO2 01/05/21 09:00 96 Venturi Mask 15.0 40 01/05/21 07:48 86 16 01/05/21 06:00 98.3 146/86 (106) I&O- Last 24 Hours up to 6 AM 01/05/21 06:00 Intake Total 2660 ml Output Total 600 ml Balance 2060 ml Laboratory Data Labs 24H Laboratory Tests 2 01/05/21 06:06: Immature Granulocyte % (Auto) 1.2, Neutrophils (%) (Auto) 85.6H, Lymphocytes (%) (Auto) 9.4L, Monocytes (%) (Auto) 3.6, Eosinophils (%) (Auto) 0.0, Basophils (%) (Auto) 0.2, Neutrophils # (Auto) 18.6H, Lymphocytes # (Auto) 2.1, Monocytes # (Auto) 0.8, Eosinophils # (Auto) 0.0, Basophils # (Auto) 0.0, Nucleated Red Blood Cells % (auto) 0.0, Anion Gap 3L, Glomerular Filtration Rate > 60.0, Calcium Level 8.6 CBC/BMP Laboratory Tests 01/05/21 06:06 Microbiology Microbiology 01/02/21 Blood Culture - Preliminary, Resulted No Growth after 48 hours. All Specime... 01/02/21 Blood Culture - Preliminary, Resulted No Growth after 48 hours. All Specime... 01/02/21 Respiratory Virus Panel (PCR) ([facility]) - Final, Complete Discharge Medications Scheduled Budesonide/Formoterol (Symbicort 80-4.5 Mcg Inhaler) 6.9 Gm Hfa.aer.ad, 2 PUFF INH RBID Lisinopril (Lisinopril) 10 Mg Tablet, 10 MG PO QHS Prednisone (Prednisone) 10 Mg Tablet, 10 MG PO TAPER Take 4 tabs daily x 3 days, then 3 tabs daily x 3 days, then 2 tabs daily x 3 days, then 1 tab daily x 3 days and stop Scheduled PRN Albuterol Sulfate (Proair Hfa) 8.5 Gm Hfa.aer.ad, 2 PUFF INH Q4H PRN for HAIM RTNESS OF BREATH, (Reported) Allergies Coded Allergies: No Known Allergies (Verified , 11/19/20) Alexandra Urrutia DO Jan 05, 2021 11:04
[2021-01-05] MEDS ORDERED: PRED10TA2 PO (11:51)
[2021-01-05] MEDS ORDERED: LISI10TA22 PO (11:51)
[2021-01-05] MEDS ORDERED: SYMB80INH INH (11:51)
[2021-01-05 18:07] LABS: BODY FLUID CULTURE Not indicated. (.); LEGIONELLA ANTIGEN URINE Negative (Negative); ORGANISM ID Not indicated. (.); SPECIMEN SOURCE Urine (.); URINE STREP PNEUMONIAE ANTIGEN Negative (Negative)
== END 2021-01-05 13:46 | disposition home or self-care (01) | DRG 141 ==
LOC: M ED 12:03 → M ED INP 22:51 → M MSPAV 01-03 00:41
PROVIDERS: ADMIT Family Medicine; ATTEND Internal Medicine
DX: J45.901 Unspecified asthma with (acute) exacerbation (principal); Z68.42 Body mass index [BMI] 45.0-49.9, adult; I10 Essential (primary) hypertension; E03.9 Hypothyroidism, unspecified; E66.9 Obesity, unspecified; Z87.891 Personal history of nicotine dependence; Z79.899 Other long term (current) drug therapy; R09.02 Hypoxemia; R00.0 Tachycardia, unspecified; F41.9 Anxiety disorder, unspecified; D72.829 Elevated white blood cell count, unspecified

== ENCOUNTER 2021-09-15 08:14 | Emergency (ER) | payer BC, OTHER ==
[~2021-09-15] VITALS: Ht 170.2 cm; Wt 149.5 kg
[~2021-09-15 08:14] MED LIST changes: +ALBU2.5V10 NEB; +CLEV1MIS25 XX; +LISI10TA22 PO; +OMEP40CA4 PO; +PRED10TA2 PO; +SYMB80INH INH
[2021-09-15 08:15] VITALS: BP 143/81
== END 2021-09-15 11:28 | disposition home or self-care (01) ==
LOC: M ED 08:14
DX: H11.32 Conjunctival hemorrhage, left eye (principal); I10 Essential (primary) hypertension; E66.9 Obesity, unspecified; G47.33 Obstructive sleep apnea (adult) (pediatric); F32.A Depression, unspecified; F41.1 Generalized anxiety disorder; F17.200 Nicotine dependence, unspecified, uncomplicated

== ENCOUNTER 2022-01-28 15:46 | Inpatient (IN) | payer OTHER ==
[~2022-01-28] VITALS: Ht 170.2 cm; Wt 144.3 kg
[2022-01-28] MEDS ORDERED: ALBUTEROL SULFATE 2.5 MG/0.5 ML INH NEB SOLN NEB ONE (16:20)
[2022-01-28] MEDS ORDERED: IPRATROPIUM 0.5MG/ALBUTEROL 2.5MG INH SOL UD 3ML (DUONEB) NEB ONE ×2 (16:20→18:05)
[2022-01-28] MEDS ORDERED: methylPREDNISolone 125MG 2ML VIAL IV ONE (16:20)
[2022-01-28 16:47] LABS: BASO # 0.1 10^3/uL (0.0-0.2); BASO % 0.8 % (0.0-1.0); EOS # 0.3 10^3/uL (0.0-0.5); EOS % 2.8 % (0.0-3.0); HEMATOCRIT 46.2 % (36.0-47.0); HEMOGLOBIN 15.6 g/dl (12.0-15.5); LYMPH # 0.9 10^3/uL (1.5-5.0); LYMPH % 8.3 % (24.0-44.0); MEAN CORPUSCULAR HEMOGLOBIN 29.2 pg (27.0-33.0); MEAN CORPUSCULAR HGB CONC 33.8 g/dl (32.0-36.5); MEAN CORPUSCULAR VOLUME 86.5 fl (80.0-96.0); MONO # 0.7 10^3/uL (0.0-0.8); MONO % 6.4 % (2.0-8.0); NEUTROPHILS # 8.7 10^3/uL (1.5-8.5); NEUTROPHILS % 80.9 % (36.0-66.0); PLATELET COUNT, AUTOMATED 212 10^3/uL (150-450); RED BLOOD COUNT 5.34 10^6/uL (4.00-5.40); WHITE BLOOD COUNT 10.8 10^3/uL (4.0-10.0)
[2022-01-28] MEDS ORDERED: MAG SULF 1GM/100ML (MAG RUN) 1 GM in IV 1 EA IV ONE ×2 (17:05→18:05)
[2022-01-28 17:30] LABS: ALBUMIN 3.9 G/DL (3.2-5.2); ALT/SGPT 46 U/L (7.0-40); BILIRUBIN,DIRECT 0.1 MG/DL (<0.4); BILIRUBIN,TOTAL 0.3 MG/DL (0.3-1.2); BLOOD UREA NITROGEN 7 MG/DL (9-23); CARBON DIOXIDE LEVEL 22 MMOL/L (20-31); CHLORIDE LEVEL 103 MMOL/L (98-107); CREATININE FOR GFR 0.65 MG/DL (0.55-1.30); GLOMERULAR FILTRATION RATE > 60.0 (>60); GLUCOSE, FASTING 109 MG/DL (60-100); POTASSIUM SERUM 3.9 MMOL/L (3.5-5.1); SODIUM LEVEL 136 MMOL/L (136-145); THYROID STIMULATING HORMONE 4.358 uIU/ML (0.55-4.78); THYROXINE (T4) 8.7 UG/DL (4.5-10.9); TOTAL PROTEIN 7.4 G/DL (5.7-8.2)
[2022-01-28] MEDS ORDERED: ISOVUE-370 76% 100ML VIAL As Ordered ONE ×2 (18:06→18:26)
[2022-01-28] MEDS ORDERED: OSELTAMIVIR PHOSPHATE 75 MG CAP (TAMIFLU) PO ONE (19:40)
[2022-01-28] MEDS ORDERED: VANCOMYCIN HCL 1,000 MG, VIAL MATE ADAPTER 1 EACH in NS 250 ML IV ONE (21:00)
[2022-01-28] MEDS ORDERED: cefTRIAXone SOD 1 GM in D5W MINI-BAG PLUS 50 ML IV SCH (22:00)
[2022-01-28] MEDS ORDERED: ALBU2.5V10 INH (22:21)
[2022-01-28] MEDS ORDERED: ALBU8.5H INH (22:21)
[2022-01-28] MEDS ORDERED: HOME MED LIST COMPLETE! XX SCH (22:25)
[2022-01-28] MEDS ORDERED: LEVALBUTEROL 1.25 MG/0.5 ML CONCENTRATE NEB NEB PRN (22:30)
[2022-01-28] MEDS ORDERED: IPRATROPIUM 0.5MG/ALBUTEROL 2.5MG INH SOL UD 3ML (DUONEB) NEB PRN (22:30)
[2022-01-28] MEDS ORDERED: AZITHROMYCIN INJ 500 MG, VIAL MATE ADAPTER 1 EACH in NS 250 ML IV SCH (23:00)
[2022-01-28] MEDS ORDERED: ACETAMINOPHEN TAB 650MG DOSE (2X325MG) PO PRN (23:05)
[2022-01-28] MEDS: IPRATROPIUM 0.02% SOLN 0.5MG 2.5ML NEB NEB PRN (23:14)
[2022-01-28] MEDS ORDERED: NS 1,000 ML IV SCH (23:30)
[2022-01-29] VITALS (24 sets, daily range): BP systolic 133–157; BP diastolic 63–95; O2SAT 93–100
[2022-01-29] MEDS ORDERED: VANCOMYCIN HCL 1,000 MG, VIAL MATE ADAPTER 1 EACH in NS 250 ML IV ONE ×3
[2022-01-29] MEDS ORDERED: MAG SULF 1GM/100ML (MAG RUN) 1 GM in IV 1 EA IV ONE (01:00)
[2022-01-29] MEDS ORDERED: IPRATROPIUM 0.02% SOLN 0.5MG 2.5ML NEB NEB ONE (01:00)
[2022-01-29] MEDS: methylPREDNISolone 40MG 1ML VIAL IV SCH ×3 (01:20→12:06)
[2022-01-29] MEDS ORDERED: ALBUTEROL SULFATE 2.5 MG/0.5 ML INH NEB SOLN INH SCH (02:00)
[2022-01-29] MEDS: IPRATROPIUM 0.02% SOLN 0.5MG 2.5ML NEB NEB PRN (04:08)
[2022-01-29] MEDS ORDERED: HEPARIN SOD (PORCINE) 5000UNITS/ML 1ML VIAL/SYRINGE SC SCH (06:00)
[2022-01-29] MEDS ORDERED: VANCOMYCIN HCL 750 MG, VIAL MATE ADAPTER 1 EACH in D5W 250 ML IV SCH ×2 (06:00→07:00)
[2022-01-29] MEDS ORDERED: NS 1,000 ML IV SCH (07:30)
[2022-01-29 08:00] LABS: HEMATOCRIT 45.7 % (36.0-47.0); HEMOGLOBIN 15.1 g/dl (12.0-15.5); MEAN CORPUSCULAR HEMOGLOBIN 28.8 pg (27.0-33.0); MEAN CORPUSCULAR VOLUME 87.2 fl (80.0-96.0); PLATELET COUNT, AUTOMATED 227 10^3/uL (150-450); RED BLOOD COUNT 5.24 10^6/uL (4.00-5.40); WHITE BLOOD COUNT 13.4 10^3/uL (4.0-10.0)
[2022-01-29 08:11] LABS: INR 1.05; PROTHROMBIN TIME 13.9 SECONDS (12.5-14.5)
[2022-01-29] MEDS: OSELTAMIVIR PHOSPHATE 75 MG CAP (TAMIFLU) PO SCH ×2 (08:13→20:50)
[2022-01-29 08:26] LABS: ALBUMIN 3.8 G/DL (3.2-5.2); ALT/SGPT 38 U/L (7.0-40); BILIRUBIN,TOTAL 0.2 MG/DL (0.3-1.2); BLOOD UREA NITROGEN 7 MG/DL (9-23); CALCIUM LEVEL 8.1 MG/DL (8.5-10.1); CARBON DIOXIDE LEVEL 22 MMOL/L (20-31); CHLORIDE LEVEL 105 MMOL/L (98-107); CREATININE FOR GFR 0.48 MG/DL (0.55-1.30); GLOMERULAR FILTRATION RATE > 60.0 (>60); GLUCOSE, FASTING 173 MG/DL (60-100); POTASSIUM SERUM 4.3 MMOL/L (3.5-5.1); SODIUM LEVEL 136 MMOL/L (136-145); TOTAL PROTEIN 7.2 G/DL (5.7-8.2)
[2022-01-29] MEDS: LEVALBUTEROL 1.25 MG/0.5 ML CONCENTRATE NEB NEB SCH ×4 (08:39→20:23)
[2022-01-29 08:44] LABS: ABG BASE EXCESS -3.1 (-2.0-2.0); ABG PARTIAL PRESSURE CO2 39.7 mmHg (35.0-45.0); ABG PARTIAL PRESSURE O2 89.8 mmHg (75.0-100.0); ABG STANDARD HCO3 21.9 MEQ/L (22.0-26.0); ABG TOTAL CO2 23.2 MEQ/L (22.0-29.0); ABG pH (ARTERIAL) 7.361 UNITS (7.350-7.450)
[2022-01-29] MEDS: NICOTINE 21MG/24HR 1 EA TRANSDERMAL TD SCH (09:00)
[2022-01-29] MEDS: ENOXAPARIN 60MG/0.6ML SYRINGE (J1650 PER 10MG) SC SCH ×2 (09:01→20:51)
[2022-01-29] MEDS ORDERED: PIPERACILLIN/TAZOBACTAM SOD 3.375 GM in D5W MINI-BAG PLUS 50 ML IV SCH (14:30)
[2022-01-29] MEDS ORDERED: METOPROLOL TART 25 MG TABLET PO ONE (14:55)
[2022-01-29] MEDS: PIPERACILLIN/TAZOBACTAM SOD 4.5 GM in D5W MINI-BAG PLUS 50 ML IV SCH ×2 (15:15→20:51)
[2022-01-29] MEDS: NS 1,000 ML IV SCH (15:15)
[2022-01-29] MEDS: BENZONATATE 100MG CAPSULE PO SCH ×2 (15:38→20:51)
[2022-01-29] MEDS: methylPREDNISolone 125MG 2ML VIAL IV SCH (17:23)
[2022-01-29] MEDS: DOXYCYCLINE HYCLATE 100MG TABLET PO SCH (20:50)
[2022-01-29] MEDS: guaiFENesin ER 600 MG TAB PO SCH (20:51)
[2022-01-30] VITALS (24 sets, daily range): BP systolic 127–142; BP diastolic 61–71; O2SAT 90–98
[2022-01-30] MEDS: PIPERACILLIN/TAZOBACTAM SOD 4.5 GM in D5W MINI-BAG PLUS 50 ML IV SCH ×4 (02:40→20:34)
[2022-01-30] MEDS: NS 1,000 ML IV SCH (02:40)
[2022-01-30] MEDS: methylPREDNISolone 125MG 2ML VIAL IV SCH ×3 (02:40→17:49)
[2022-01-30 04:29] LABS: HEMATOCRIT 43.3 % (36.0-47.0); HEMOGLOBIN 14.3 g/dl (12.0-15.5); MEAN CORPUSCULAR HEMOGLOBIN 29.2 pg (27.0-33.0); MEAN CORPUSCULAR VOLUME 88.4 fl (80.0-96.0); PLATELET COUNT, AUTOMATED 218 10^3/uL (150-450); WHITE BLOOD COUNT 19.7 10^3/uL (4.0-10.0)
[2022-01-30 05:16] LABS: ALBUMIN 3.6 G/DL (3.2-5.2); ALT/SGPT 41 U/L (7.0-40); BILIRUBIN,TOTAL 0.2 MG/DL (0.3-1.2); BLOOD UREA NITROGEN 12 MG/DL (9-23); CALCIUM LEVEL 8.2 MG/DL (8.5-10.1); CARBON DIOXIDE LEVEL 25 MMOL/L (20-31); CHLORIDE LEVEL 105 MMOL/L (98-107); CREATININE FOR GFR 0.61 MG/DL (0.55-1.30); GLOMERULAR FILTRATION RATE > 60.0 (>60); GLUCOSE, FASTING 146 MG/DL (60-100); MAGNESIUM LEVEL 1.9 MG/DL (1.8-2.4); POTASSIUM SERUM 4.6 MMOL/L (3.5-5.1); SODIUM LEVEL 138 MMOL/L (136-145); TOTAL PROTEIN 6.7 G/DL (5.7-8.2)
[2022-01-30] MEDS: LEVALBUTEROL 1.25 MG/0.5 ML CONCENTRATE NEB NEB SCH ×4 (07:21→21:15)
[2022-01-30] MEDS: NICOTINE 21MG/24HR 1 EA TRANSDERMAL TD SCH (09:00)
[2022-01-30] MEDS: guaiFENesin ER 600 MG TAB PO SCH ×2 (09:55→20:34)
[2022-01-30] MEDS: BENZONATATE 100MG CAPSULE PO SCH ×3 (09:56→20:34)
[2022-01-30] MEDS: OSELTAMIVIR PHOSPHATE 75 MG CAP (TAMIFLU) PO SCH ×2 (09:56→20:34)
[2022-01-30] MEDS: DOXYCYCLINE HYCLATE 100MG TABLET PO SCH ×2 (09:56→20:34)
[2022-01-30] MEDS: ENOXAPARIN 60MG/0.6ML SYRINGE (J1650 PER 10MG) SC SCH ×2 (09:57→20:34)
[2022-01-31] VITALS: BP 161/76
[2022-01-31] MEDS: PIPERACILLIN/TAZOBACTAM SOD 4.5 GM in D5W MINI-BAG PLUS 50 ML IV SCH ×2 (02:47→09:11)
[2022-01-31] MEDS: methylPREDNISolone 125MG 2ML VIAL IV SCH ×2 (02:47→09:11)
[2022-01-31 04:00] VITALS: BP 146/69
[2022-01-31 04:37] LABS: BASO % 0.1 % (0.0-1.0); HEMOGLOBIN 14.6 g/dl (12.0-15.5); LYMPH # 1.6 10^3/uL (1.5-5.0); LYMPH % 9.1 % (24.0-44.0); MEAN CORPUSCULAR HEMOGLOBIN 28.9 pg (27.0-33.0); MEAN CORPUSCULAR HGB CONC 32.4 g/dl (32.0-36.5); MEAN CORPUSCULAR VOLUME 89.1 fl (80.0-96.0); MONO # 0.9 10^3/uL (0.0-0.8); MONO % 5.4 % (2.0-8.0); NEUTROPHILS # 14.7 10^3/uL (1.5-8.5); NEUTROPHILS % 84.5 % (36.0-66.0); PLATELET COUNT, AUTOMATED 239 10^3/uL (150-450); RED BLOOD COUNT 5.05 10^6/uL (4.00-5.40); WHITE BLOOD COUNT 17.4 10^3/uL (4.0-10.0)
[2022-01-31 05:55] LABS: ALBUMIN 3.6 G/DL (3.2-5.2); ALT/SGPT 56 U/L (7.0-40); BILIRUBIN,TOTAL 0.2 MG/DL (0.3-1.2); BLOOD UREA NITROGEN 17 MG/DL (9-23); CALCIUM LEVEL 8.6 MG/DL (8.5-10.1); CARBON DIOXIDE LEVEL 26 MMOL/L (20-31); CHLORIDE LEVEL 103 MMOL/L (98-107); CREATININE FOR GFR 0.68 MG/DL (0.55-1.30); GLOMERULAR FILTRATION RATE > 60.0 (>60); GLUCOSE, FASTING 131 MG/DL (60-100); MAGNESIUM LEVEL 1.9 MG/DL (1.8-2.4); POTASSIUM SERUM 4.4 MMOL/L (3.5-5.1); SODIUM LEVEL 138 MMOL/L (136-145); TOTAL PROTEIN 6.9 G/DL (5.7-8.2)
[2022-01-31] MEDS: LEVALBUTEROL 1.25 MG/0.5 ML CONCENTRATE NEB NEB SCH ×2 (07:27→11:30)
[2022-01-31 08:05] VITALS: BP 143/88
[2022-01-31] MEDS: NICOTINE 21MG/24HR 1 EA TRANSDERMAL TD SCH (09:00)
[2022-01-31] MEDS: BENZONATATE 100MG CAPSULE PO SCH (09:10)
[2022-01-31] MEDS: OSELTAMIVIR PHOSPHATE 75 MG CAP (TAMIFLU) PO SCH (09:10)
[2022-01-31] MEDS: DOXYCYCLINE HYCLATE 100MG TABLET PO SCH (09:11)
[2022-01-31] MEDS: ENOXAPARIN 60MG/0.6ML SYRINGE (J1650 PER 10MG) SC SCH (09:11)
[2022-01-31] MEDS: guaiFENesin ER 600 MG TAB PO SCH (09:11)
[2022-01-31] MEDS ORDERED: PRED10TA2 PO (10:33)
[2022-01-31] MEDS ORDERED: DOXY100T PO (10:33)
[2022-01-31] MEDS ORDERED: AMOX875T2 PO (10:33)
[2022-01-31] MEDS ORDERED: GUAI200T6 PO (10:33)
[2022-01-31] MEDS ORDERED: OSEL75CA2 PO (10:34)
== END 2022-01-31 13:38 | disposition home or self-care (01) | DRG 141 ==
LOC: M ED 15:46 → M ED INP 23:03 → M MS5PR 01-29 00:52 → M PCU 01-29 08:20
PROVIDERS: ADMIT Internal Medicine; ATTEND Family Medicine
DX: J45.901 Unspecified asthma with (acute) exacerbation (principal); J10.08 Influenza due to other identified influenza virus with other specified pneumonia; J18.9 Pneumonia, unspecified organism; E66.01 Morbid (severe) obesity due to excess calories; Z68.42 Body mass index [BMI] 45.0-49.9, adult; F17.210 Nicotine dependence, cigarettes, uncomplicated

== ENCOUNTER 2022-09-18 17:30 | Emergency (ER) | payer OTHER ==
[~2022-09-18] VITALS: Ht 170.2 cm; Wt 143.4 kg
[~2022-09-18 17:30] MED LIST changes: +ALBU2.5V10 INH; +ALBU8.5H INH; +AMOX875T2 PO; +DOXY100T PO; +GUAI200T6 PO; -HM S0.65 NARES; +OSEL75CA2 PO; +SALI0.6531 NARES
[2022-09-18 17:31] VITALS: TEMP 97.3
[2022-09-18 19:08] LABS: BASO # 0.1 10^3/uL (0.0-0.2); BASO % 0.6 % (0.0-1.0); EOS # 0.8 10^3/uL (0.0-0.5); EOS % 6.1 % (0.0-3.0); HEMATOCRIT 47.3 % (36.0-47.0); HEMOGLOBIN 15.8 g/dl (12.0-15.5); LYMPH # 2.6 10^3/uL (1.5-5.0); LYMPH % 19.9 % (24.0-44.0); MEAN CORPUSCULAR HEMOGLOBIN 28.7 pg (27.0-33.0); MEAN CORPUSCULAR HGB CONC 33.4 g/dl (32.0-36.5); MEAN CORPUSCULAR VOLUME 85.8 fl (80.0-96.0); MONO # 0.8 10^3/uL (0.0-0.8); MONO % 6.2 % (2.0-8.0); NEUTROPHILS # 8.5 10^3/uL (1.5-8.5); NEUTROPHILS % 66.2 % (36.0-66.0); PLATELET COUNT, AUTOMATED 239 10^3/uL (150-450); RED BLOOD COUNT 5.51 10^6/uL (4.00-5.40); WHITE BLOOD COUNT 12.8 10^3/uL (4.0-10.0)
[2022-09-18 19:38] LABS: ALBUMIN 3.7 G/DL (3.2-5.2); ALKALINE PHOSPHATASE 72 U/L (46-116); ALT/SGPT 39 U/L (7.0-40); AST/SGOT 17 U/L (<34); BILIRUBIN,TOTAL 0.2 MG/DL (0.3-1.2); BLOOD UREA NITROGEN 12 MG/DL (9-23); CALCIUM LEVEL 9.8 MG/DL (8.5-10.1); CARBON DIOXIDE LEVEL 27 MMOL/L (20-31); CHLORIDE LEVEL 104 MMOL/L (98-107); CREATININE FOR GFR 0.62 MG/DL (0.55-1.30); GLOMERULAR FILTRATION RATE > 60.0 (>60); GLUCOSE, FASTING 89 MG/DL (60-100); POTASSIUM SERUM 4.2 MMOL/L (3.5-5.1); SODIUM LEVEL 136 MMOL/L (136-145); TOTAL PROTEIN 7.5 G/DL (5.7-8.2)
[2022-09-18 19:46] LABS: HEPATITIS B SURFACE ANTIBODY NEGATIVE (POSITIVE)
[2022-09-18 19:58] LABS: HEPATITIS B SURFACE ANTIGEN NEGATIVE (NEGATIVE)
[2022-09-18 20:11] LABS: HIV 1&2 SCREEN NEGATIVE (NEGATIVE)
[2022-09-18 20:19] LABS: HEPATITIS C VIRUS ABY INDEX 0.09 INDEX (<0.8)
[2022-09-18] MEDS ORDERED: HEPATITIS B VACCINE 20MCG/ML 1ML SYRINGE (ADULT DOSE) IM.IMMUN ONE (23:20)
[2022-09-18] MEDS ORDERED: HEPATITIS B IMMUNE GLOBULIN 5ML INJ IM.IMMUN ONE (23:20)
[2022-09-19 00:10] VITALS: BP 138/94; O2SAT 96
== END 2022-09-19 00:19 | disposition home or self-care (01) ==
LOC: M ED 17:30
DX: Z77.21 Contact with and (suspected) exposure to potentially hazardous body fluids (principal); I10 Essential (primary) hypertension; E03.9 Hypothyroidism, unspecified; Z79.899 Other long term (current) drug therapy; Z79.51 Long term (current) use of inhaled steroids

== ENCOUNTER 2022-11-05 23:21 | Emergency (ER) | payer OTHER, SELFPAY ==
[~2022-11-05] VITALS: Ht 170.2 cm; Wt 145.0 kg
[2022-11-05 23:25] VITALS: BP 146/83; TEMP 97.7; O2SAT 94
[2022-11-05] MEDS ORDERED: NAPR-849 PO (23:36)
[2022-11-06] MEDS ORDERED: KETOROLAC 60MG 2ML VIAL IM ONE (01:15)
[2022-11-06] MEDS ORDERED: AUGMENTIN 875 MG TAB PO ONE (01:15)
[2022-11-06] MEDS ORDERED: NORCO 5/325MG TABLET (HOME DOSE PACK) PO ONE (01:15)
[2022-11-06] MEDS ORDERED: AMOX875T2 PO (01:31)
[2022-11-06] MEDS ORDERED: ANBE20GE TOP (01:31)
[2022-11-06] MEDS ORDERED: HYDR-3713 PO (01:31)
== END 2022-11-06 02:00 | disposition home or self-care (01) ==
LOC: M ED 23:21
DX: K04.7 Periapical abscess without sinus (principal); K03.81 Cracked tooth; F17.200 Nicotine dependence, unspecified, uncomplicated; I10 Essential (primary) hypertension; J45.909 Unspecified asthma, uncomplicated; Z79.2 Long term (current) use of antibiotics; Z79.52 Long term (current) use of systemic steroids; Z79.899 Other long term (current) drug therapy
CPT/HCPCS: 96372; 99282; J1885

== ENCOUNTER 2022-11-10 19:27 | Emergency (ER) | payer SELFPAY ==
[~2022-11-10] VITALS: Ht 170.2 cm; Wt 144.2 kg
[~2022-11-10 19:27] MED LIST changes: +ANBE20GE TOP; +HYDR-3713 PO; +NAPR-849 PO
[2022-11-10 19:28] VITALS: O2SAT 96
[2022-11-10] MEDS ORDERED: AMPICILLIN SOD/SULBACTAM SOD 3 GM in D5W MINI-BAG PLUS 100 ML IV ONE (20:45)
[2022-11-10] MEDS ORDERED: KETOROLAC 30 MG/ML 1ML VIAL IV ONE (20:45)
[2022-11-10] MEDS ORDERED: dexAMETHasone 20MG/5ML VIAL IV ONE (20:45)
[2022-11-10] MEDS ORDERED: NS 1,000 ML IV ONE (20:45)
[2022-11-10] MEDS ORDERED: ISOVUE-370 76% 100ML VIAL As Ordered ONE (21:36)
[2022-11-10 21:47] VITALS: BP 180/96
[2022-11-10 22:19] LABS: BASO # 0.1 10^3/uL (0.0-0.2); BASO % 0.6 % (0.0-1.0); EOS # 0.4 10^3/uL (0.0-0.5); EOS % 3.1 % (0.0-3.0); HEMATOCRIT 39.1 % (36.0-47.0); HEMOGLOBIN 12.8 g/dl (12.0-15.5); LYMPH % 15.6 % (24.0-44.0); MEAN CORPUSCULAR HEMOGLOBIN 28.1 pg (27.0-33.0); MEAN CORPUSCULAR HGB CONC 32.7 g/dl (32.0-36.5); MEAN CORPUSCULAR VOLUME 85.7 fl (80.0-96.0); MONO # 0.7 10^3/uL (0.0-0.8); MONO % 5.5 % (2.0-8.0); NEUTROPHILS # 9.7 10^3/uL (1.5-8.5); NEUTROPHILS % 74.6 % (36.0-66.0); PLATELET COUNT, AUTOMATED 221 10^3/uL (150-450); RED BLOOD COUNT 4.56 10^6/uL (4.00-5.40); WHITE BLOOD COUNT 13.1 10^3/uL (4.0-10.0)
[2022-11-10 22:34] LABS: ERYTHROCYTE SEDIMENTATION RATE 27 mm/hr (0-20)
[2022-11-10 23:12] VITALS: TEMP 96.6
[2022-11-10] MEDS ORDERED: CLEO300C2 PO (23:21)
== END 2022-11-10 23:30 | disposition home or self-care (01) ==
LOC: M ED 19:27
DX: K11.20 Sialoadenitis, unspecified (principal); I10 Essential (primary) hypertension
CPT/HCPCS: 70491; 80047; 84702; 85025; 85652; 86140; 96361; 96374; 96375; 99284; J0295; J1100; J1885; Q9967

== ENCOUNTER 2023-09-17 21:45 | Emergency (ER) | payer SELFPAY ==
[~2023-09-17] VITALS: Ht 170.2 cm; Wt 150.5 kg
[2023-09-17 21:46] VITALS: BP 176/96; TEMP 98.4; O2SAT 99
== END 2023-09-17 23:40 | disposition left against medical advice (07) ==
LOC: M ED 21:45
DX: Z53.21 Procedure and treatment not carried out due to patient leaving prior to being seen by health care provider (principal)

== ENCOUNTER 2024-02-10 10:53 | Emergency (ER) | payer OTHER, SELFPAY ==
[~2024-02-10] VITALS: Ht 170.2 cm; Wt 150.2 kg
[~2024-02-10 10:53] MED LIST changes: -CYCL5TAB PO; +CYCL5TAB4 PO
[2024-02-10] MEDS ORDERED: ALBU2.5V10 INH (11:53)
[2024-02-10] MEDS ORDERED: AMOX875T PO (11:55)
[2024-02-10 12:53] VITALS: BP 141/67; TEMP 97.6; O2SAT 97
== END 2024-02-10 13:00 | disposition home or self-care (01) ==
LOC: M ED 10:53
DX: H66.91 Otitis media, unspecified, right ear (principal); R06.02 Shortness of breath; I10 Essential (primary) hypertension; E03.9 Hypothyroidism, unspecified; F41.9 Anxiety disorder, unspecified; Z87.891 Personal history of nicotine dependence; Z79.2 Long term (current) use of antibiotics; Z79.51 Long term (current) use of inhaled steroids

== ENCOUNTER → 2024-02-17 | Outpatient (REF) | payer OTHER ==
[~2024-02-17] MED LIST changes: +AMOX875T PO
[2024-02-17 19:44] LABS: ALBUMIN 3.7 G/DL (3.2-5.2); ALKALINE PHOSPHATASE 69 U/L (35-104); ALT/SGPT 36 U/L (7.0-40); AST/SGOT 14 U/L (<34); BILIRUBIN,TOTAL 0.2 MG/DL (0.3-1.2); BLOOD UREA NITROGEN 10 MG/DL (9-23); CALCIUM LEVEL 9.1 MG/DL (8.5-10.1); CARBON DIOXIDE LEVEL 27 MMOL/L (20-31); CHLORIDE LEVEL 103 MMOL/L (98-107); CHOLESTEROL LEVEL 159 MG/DL (<200); CHOLESTEROL RISK RATIO 4.05 (<5); CREATININE FOR GFR 0.56 MG/DL (0.55-1.30); GLOMERULAR FILTRATION RATE > 60.0 (>60); GLUCOSE, FASTING 121 MG/DL (60-100); HDL CHOLESTEROL 39.2 MG/DL (>40); LDL CHOLESTEROL 71.8 MG/DL (<100); NON-HDL-C 119.8 MG/DL; POTASSIUM SERUM 4.5 MMOL/L (3.5-5.1); SODIUM LEVEL 139 MMOL/L (136-145); TRIGLYCERIDES LEVEL 240 MG/DL (<150)
[2024-02-17 19:45] LABS: THYROID STIMULATING HORMONE 8.205 uIU/ML (0.55-4.78)
== END ==
LOC: M LAB REF 17:54
PROVIDERS: ATTEND Pediatrics
DX: E66.2 Morbid (severe) obesity with alveolar hypoventilation (principal); Z68.43 Body mass index [BMI] 50.0-59.9, adult